=== PATIENT | female | born 1940 | race Caucasian/White ===

== ENCOUNTER → 2016-07-09 | Outpatient (CLI) | payer MEDICARE, BC, OTHER ==
[2016-07-09 09:49] LABS: BASO % 0.3 % (0.0-1.0); EOS # 0.2 K/mm3 (0.0-0.50); EOS % 2.5 % (0.0-3.0); LARGE UNSTAINED CELL # 0.1 K/mm3 (0.0-0.4); LARGE UNSTAINED CELL % 1.7 % (0.0-4.0); LYMPH # 1.9 K/mm3 (1.5-4.5); MEAN CORPUSCULAR HEMOGLOBIN 31.2 pg (27.0-33.0); MEAN CORPUSCULAR HGB CONC 33.3 g/dl (32.0-36.5); MEAN CORPUSCULAR VOLUME 93.5 fl (80.0-96.0); MONO # 0.3 K/mm3 (0.0-0.8); MONO % 5.9 % (0.0-5.0); NEUTROPHILS # 3.3 K/mm3 (1.8-7.7); NEUTROPHILS % 56.5 % (36.0-66.0); PLATELET COUNT, AUTOMATED 247 k/mm3 (150-450); RED CELL DISTRIBUTION WIDTH 12.2 % (11.5-14.5); WHITE BLOOD COUNT 5.8 K/mm3 (4.0-10.0)
[2016-07-09 10:20] LABS: ALBUMIN 3.5 GM/DL (3.2-5.2); ALBUMIN/GLOBULIN RATIO 1.35 (1.00-1.93); BILIRUBIN,TOTAL 0.4 MG/DL (0.2-1.0); CALCIUM LEVEL 9.1 MG/DL (8.8-10.2); CREATININE FOR GFR 1.18 MG/DL (0.55-1.02); GLOMERULAR FILTRATION RATE 47.4 (>39); POTASSIUM SERUM 4.1 MEQ/L (3.5-5.1); TOTAL PROTEIN 6.1 GM/DL (6.4-8.2)
== END ==
LOC: M WUC 08:06
PROVIDERS: ATTEND Family Medicine
DX: N18.3 Chronic kidney disease, stage 3 (moderate) (principal); E11.9 Type 2 diabetes mellitus without complications

== ENCOUNTER → 2016-12-04 | Outpatient (CLI) | payer MEDICARE, BC, OTHER ==
[~2016-12-04] MED LIST: CHLO125TA; LISI10TA4; METO1TAB33; NAME14CA; TIZA2TA; ULTR50TA8 PO
[2016-12-04 18:20] LABS: BASO % 0.6 % (0.0-1.0); EOS # 0.2 K/mm3 (0.0-0.50); LARGE UNSTAINED CELL # 0.1 K/mm3 (0.0-0.4); LYMPH # 1.9 K/mm3 (1.5-4.5); LYMPH % 28.7 % (24.0-44.0); MEAN CORPUSCULAR HEMOGLOBIN 32.3 pg (27.0-33.0); MEAN CORPUSCULAR HGB CONC 34.4 g/dl (32.0-36.5); MONO # 0.4 K/mm3 (0.0-0.8); MONO % 6.7 % (0.0-5.0); NEUTROPHILS # 3.7 K/mm3 (1.8-7.7); PLATELET COUNT, AUTOMATED 251 k/mm3 (150-450); RED CELL DISTRIBUTION WIDTH 12.7 % (11.5-14.5); WHITE BLOOD COUNT 6.2 K/mm3 (4.0-10.0)
[2016-12-04 18:22] LABS: ALBUMIN 3.6 GM/DL (3.2-5.2); ALBUMIN/GLOBULIN RATIO 1.44 (1.00-1.93); BILIRUBIN,TOTAL 0.4 MG/DL (0.2-1.0); CALCIUM LEVEL 10.5 MG/DL (8.8-10.2); CREATININE FOR GFR 1.32 MG/DL (0.55-1.02); GLOMERULAR FILTRATION RATE 41.7 (>39); PERCENT SATURATION 23.9 % (13.2-45.0); POTASSIUM SERUM 3.9 MEQ/L (3.5-5.1); TOTAL PROTEIN 6.1 GM/DL (6.4-8.2)
== END ==
LOC: M WUC 14:32
PROVIDERS: ATTEND Family Medicine
DX: N18.3 Chronic kidney disease, stage 3 (moderate) (principal); E11.9 Type 2 diabetes mellitus without complications; E55.9 Vitamin D deficiency, unspecified

== ENCOUNTER → 2017-01-06 | Outpatient (CLI) | payer MEDICARE, BC, OTHER ==
[2017-01-06 20:22] LABS: ALBUMIN 3.3 GM/DL (3.2-5.2); ANION GAP 10 MEQ/L (8-16); BLOOD UREA NITROGEN 20 MG/DL (7-18); CALCIUM LEVEL 8.8 MG/DL (8.8-10.2); CARBON DIOXIDE LEVEL 27 MEQ/L (21-32); CHLORIDE LEVEL 105 MEQ/L (98-107); CREATININE FOR GFR 1.26 MG/DL (0.55-1.02); GLUCOSE, FASTING 119 MG/DL (83-110); IMMUNOGLOBULIN G 596 MG/DL (681-1648); IMMUNOGLOBULIN M 31.9 MG/DL (40-230); PHOSPHORUS LEVEL 2.8 MG/DL (2.5-4.9); POTASSIUM SERUM 3.8 MEQ/L (3.5-5.1); SODIUM LEVEL 142 MEQ/L (136-145); TOTAL PROTEIN 6.3 GM/DL (6.4-8.2)
[2017-01-07 14:27] LABS: ALBUMIN 3.86 GM/DL (3.29-5.55); ALBUMIN % 61.3 % (55.8-66.1); GAMMA GLOBULIN % 10.1 % (11.1-18.8)
[2017-01-13 00:06] LABS: PTH RELATED PEPTIDE < 1.1 pmol/L (.); VITAMIN D 1,25 DIHYDROXY 51.6 pg/mL (19.9-79.3)
== END ==
LOC: M WUC 15:27
PROVIDERS: ATTEND Family Medicine
DX: E83.52 Hypercalcemia (principal)

== ENCOUNTER 2017-02-23 10:51 | Emergency (ER) | payer MEDICARE, BC, OTHER ==
[2017-02-23] MEDS ORDERED: NAME14CA (11:02)
[2017-02-23] MEDS ORDERED: TIZA2TA (11:02)
[2017-02-23] MEDS ORDERED: CHLO125TA (11:02)
[2017-02-23] MEDS ORDERED: LISI10TA4 (11:02)
[2017-02-23] MEDS ORDERED: METO1TAB33 (11:02)
[2017-02-23 13:17] LABS: BASO % 0.3 % (0.0-1.0); EOS # 0.2 10^3/uL (0.0-0.50); EOS % 2.3 % (0.0-3.0); IMMATURE GRANULOCYTE % 0.4 % (0-0); LYMPH # 1.7 10^3/uL (1.5-4.5); MEAN CORPUSCULAR HEMOGLOBIN 31.8 pg (27.0-33.0); MEAN CORPUSCULAR HGB CONC 33.4 g/dl (32.0-36.5); MONO # 0.6 10^3/uL (0.0-0.8); MONO % 8.7 % (0.0-5.0); NEUTROPHILS # 4.8 10^3/uL (1.8-7.7); NEUTROPHILS % 65.3 % (36.0-66.0); PLATELET COUNT, AUTOMATED 292 10^3/uL (150-450); RED CELL DISTRIBUTION WIDTH 12.4 % (11.5-14.5); WHITE BLOOD COUNT 7.4 10^3/uL (4.0-10.0)
[2017-02-23 14:00] LABS: ALBUMIN 3.8 GM/DL (3.2-5.2); ALBUMIN/GLOBULIN RATIO 1.23 (1.00-1.93); BILIRUBIN,DIRECT 0.1 MG/DL (0.0-0.2); BILIRUBIN,TOTAL 0.4 MG/DL (0.2-1.0); CALCIUM LEVEL 9.6 MG/DL (8.8-10.2); CREATININE FOR GFR 1.52 MG/DL (0.55-1.02); GLOMERULAR FILTRATION RATE 35.4 (>39); POTASSIUM SERUM 4.1 MEQ/L (3.5-5.1); TOTAL PROTEIN 6.9 GM/DL (6.4-8.2)
--- NOTE | 2017-02-23 18:51 | REP ---
MRI LUMBAR SPINE WITHOUT CONTRAST: 02/23/2017. Clinical history: Back pain and radiculopathy. Comparison: There are no prior studies. Technique: Sagittal and axial images with multiple sequences for each provided. Findings: The sagittal images show loss of lordosis. The vertebral body heights and marrow signal are normal. Disc space is markedly narrowed at the L5-S1 with a few millimeters of retrolisthesis of L5 on S1. There is also slight disc space narrowing at L3-4 and more at L2-3 and normal at L1-2. All levels show some degree of loss of disc water signal increasing as the levels decrease. No marrow signal abnormality. Conus terminates at the upper aspect of the L1. The T12-L1 and L1-2 levels show no disc bulge or herniation and no spinal or foraminal stenosis. At L2-3, there is mild broad-based disc bulge with some posterior osteophytes and ligamentum flavum hypertrophy. Cross-sectional area of the canal was adequate. The foramina show loss of perineural fat without nerve root compression on the right and ample perineural fat on the left without nerve root compression of the L2 roots. At L3-4, there is mild broad-based disc bulge, ligamentum flavum and facet hypertrophy. Cross-sectional area of the central canal adequate. Loss of perineural fat on the right due to facet spur and disc bulge. The left foramen is adequate. At L5-S1 broad-based disc bulge with central disc protrusion, more extensive ligamentum flavum and facet hypertrophy combining to cause some central canal stenosis, moderately severe. The AP canal diameter is minimally 7.2 mm. There is left paracentral extruded disc material extending below the superior endplate of L5 in the canal, but not into the foramen. This abuts and displaces the left L5 nerve root. The right L5 nerve root is abutted by disc bulge but not displaced on the opposite side. There is loss of perineural fat to a mild degree on both sides without nerve root compression. At L5-S1, there is a broad-based disc bulge with central disc protrusion. This flattens ventral thecal sac. Ligamentum flavum hypertrophy noted. There is some lateral recess stenosis. Foramina show loss of perineural fat on both sides, more left than right. Impression: 1. Lumbar spondylosis from L2-3 through L5-S1, worst at L4-5 with combined factors causing central canal stenosis including ligamentum and facet hypertrophy with broad-based disc bulge and central disc protrusion. However, there is also a disc extrusion posteriorly to the left in the central canal extending from the end plate posterior to the vertebral body of L5 and this abuts and displaces the left L5 nerve root in the central canal with moderately severe stenosis with ligamentum and facet hypertrophy. 2. The L3-4 level and L2-3 show central canal adequate and some mild loss of perineural fat on the right without nerve root compression. 3. The L5-S1 level shows broad-based disc bulge abutting the S1 nerve roots but not causing significant central canal stenosis, but combined factors cause lateral recess stenosis and there is some foraminal narrowing due to combined factors with loss of perineural fat at both sides. Signed by Nikita Liz MD 02/23/2017 08:29 P
[2017-02-23] MEDS ORDERED: ULTR50TA8 PO (19:29)
[2017-02-23 19:40] VITALS: BP 134/77
== END 2017-02-23 19:41 | disposition home or self-care (01) ==
LOC: M ED 10:51
DX: M51.17 Intervertebral disc disorders with radiculopathy, lumbosacral region (principal)

== ENCOUNTER 2017-03-28 09:33 | Inpatient (IN) | payer MEDICARE, BC, OTHER ==
[~2017-03-28] VITALS: Ht 162.6 cm; Wt 81.3 kg
[~2017-03-28 09:33] MED LIST changes: -LISI10TA4; +LISI10TA4 PO; -METO1TAB33; +METO1TAB33 PO; -NAME14CA; +NAME14CA PO
[2017-03-28] MEDS ORDERED: VITA100072 PO (09:51)
[2017-03-28] MEDS ORDERED: METF500T13 PO (09:51)
[2017-03-28] MEDS ORDERED: ATOR1TAB19 PO (09:51)
[2017-03-28] MEDS ORDERED: FISH100049 PO (09:51)
[2017-03-28] MEDS ORDERED: DONETAB6 PO (09:51)
[2017-03-28] MEDS ORDERED: MULT1CHW39 PO (09:51)
[2017-03-28] MEDS ORDERED: DOXY50CA26 PO (09:51)
[2017-03-28] MEDS ORDERED: MULT1TAB10 PO (09:51)
[2017-03-28] MEDS ORDERED: GABA-279 PO (09:51)
[2017-03-28] MEDS ORDERED: TRAM50TA2 PO (10:35)
[2017-03-28] MEDS ORDERED: CHLO25TA PO (10:35)
[2017-03-28] MEDS ORDERED: DOXY50TA2 PO (10:35)
[2017-03-28] MEDS ORDERED: METF-414 PO (10:35)
--- NOTE | 2017-03-28 10:37 | REP ---
Clinical: Altered mental status. Findings: Age-related atrophy and microvascular ischemic changes are appreciated. The ventricles and sulci are symmetric. Cole-white differentiation is maintained. There is no evidence for acute intracranial hemorrhage, mass/mass effect, pathology or infarction. No extra-axial fluid collection. Calvarium is intact. Paranasal sinuses and mastoid air cells are clear. Impression: Age related atrophy and microvascular ischemic changes. No acute intracranial hemorrhage, infarction, or mass/mass effect. Signed by Fransico Murdock MD 03/28/2017 10:29 A
[2017-03-28 11:07] LABS: BASO % 0.2 % (0.0-1.0); EOS % 0.3 % (0.0-3.0); IMMATURE GRANULOCYTE % 0.5 % (0-0); LYMPH # 1.4 10^3/uL (1.5-4.5); LYMPH % 10.7 % (24.0-44.0); MEAN CORPUSCULAR HEMOGLOBIN 31.9 pg (27.0-33.0); MEAN CORPUSCULAR HGB CONC 33.7 g/dl (32.0-36.5); MEAN CORPUSCULAR VOLUME 94.7 fl (80.0-96.0); MONO # 1.2 10^3/uL (0.0-0.8); MONO % 9.1 % (0.0-5.0); NEUTROPHILS # 10.2 10^3/uL (1.8-7.7); NEUTROPHILS % 79.2 % (36.0-66.0); PLATELET COUNT, AUTOMATED 237 10^3/uL (150-450); RED CELL DISTRIBUTION WIDTH 12.3 % (11.5-14.5); WHITE BLOOD COUNT 12.9 10^3/uL (4.0-10.0)
[2017-03-28 11:30] LABS: ANION GAP 10 MEQ/L (8-16); BLOOD UREA NITROGEN 27 MG/DL (7-18); CALCIUM LEVEL 9.5 MG/DL (8.8-10.2); CARBON DIOXIDE LEVEL 26 MEQ/L (21-32); CHLORIDE LEVEL 105 MEQ/L (98-107); CREATININE FOR GFR 1.52 MG/DL (0.55-1.02); GLOMERULAR FILTRATION RATE 35.4 (>39); GLUCOSE, FASTING 129 MG/DL (83-110); POTASSIUM SERUM 4.3 MEQ/L (3.5-5.1); SODIUM LEVEL 141 MEQ/L (136-145)
--- NOTE | 2017-03-28 11:31 | REP ---
Clinical: Altered mental status. Comparison: None . Findings: The mediastinum and cardiac silhouette are stable and within normal limits for portable technique. Left lower lobe layering effusion versus chronic changes cannot be excluded. No focal consolidation or pneumothorax. Skeletal structures are intact. Impression: Cannot exclude small left lower lobe effusion. Signed by Fransico Murdock MD 03/28/2017 11:23 A
--- NOTE | 2017-03-28 17:58 | REP ---
Clinical: Abdominal pain with distension and diarrhea could Technique: Two supine views of the abdomen and pelvis. Findings: Bowel gas pattern is nonspecific. No significant fecal stasis or constipation is identified and there is no evidence for bowel obstruction or obvious perforation. No organomegaly. Skeletal structures demonstrate age-related changes. No abnormal calcifications. Impression: Nonspecific bowel gas pattern. Signed by Fransico Murdock MD 03/28/2017 05:49 P
[2017-03-28] MEDS ORDERED: NS 0.45% 500 ML IV SCH (18:00)
[2017-03-28 18:58] VITALS: BP 140/64
[2017-03-28] MEDS: LISINOPRIL 10 MG TAB PO SCH (21:11)
[2017-03-28] MEDS: METOPROLOL SUCC (TopROL XL) 100MG *XL* TAB PO SCH (21:11)
[2017-03-28] MEDS: ATORVASTATIN 10 MG TAB PO SCH (21:11)
[2017-03-28] MEDS: DONEPEZIL 5 MG TAB PO SCH (21:12)
[2017-03-28] MEDS: risperiDONE 0.25 MG TAB PO SCH (22:18)
[2017-03-29 06:00] VITALS: BP 125/67
[2017-03-29 06:40] LABS: MEAN CORPUSCULAR HEMOGLOBIN 31.2 pg (27.0-33.0); MEAN CORPUSCULAR HGB CONC 33.1 g/dl (32.0-36.5); MEAN CORPUSCULAR VOLUME 94.3 fl (80.0-96.0); PLATELET COUNT, AUTOMATED 250 10^3/uL (150-450); RED CELL DISTRIBUTION WIDTH 12.5 % (11.5-14.5); WHITE BLOOD COUNT 10.4 10^3/uL (4.0-10.0)
[2017-03-29 07:03] LABS: CALCIUM LEVEL 9.6 MG/DL (8.8-10.2); CREATININE FOR GFR 1.39 MG/DL (0.55-1.02); GLOMERULAR FILTRATION RATE 39.2 (>39)
[2017-03-29] MEDS: CYANOCOBALAMIN 500 MCG TAB PO SCH (08:38)
[2017-03-29] MEDS: MULTIVITAMINS/MINERALS THERAP 1 TAB PO SCH (08:39)
[2017-03-29] MEDS: METOPROLOL SUCC (TopROL XL) 100MG *XL* TAB PO SCH ×2 (08:42→20:57)
--- NOTE | 2017-03-29 09:06 | ECGEPIP ---
Stationary ECG Study [facility] - ED Test Date: 2017-03-28 Pat Name: MARSIOL RAYA Department: Room: - Gender: F Field Mechanic/Site Lead: jennifer : 1940 Requested By: Giovanny Pate Order Number: [id number] Reading MD: iGovanny Medina Measurements Intervals [place] Rate: 67 P: 15 IL: 181 QRS: 11 QRSD: 106 T: 180 QT: 402 QTc: 425 Interpretive Statements SINUS RHYTHM ST DEVIATION AND MODERATE T-WAVE ABNORMALITY, CONSIDER ANTERIOR ISCHEMIA NO PRIORS FOR COMPARISON Electronically Signed On 03-29-2017 9:06:26 EST by Giovanny Medina
--- NOTE | 2017-03-29 11:08 | IPNPDOC ---
Subjective Date Seen The patient was seen on 03/29/17. Subjective Chief Complaint/HPI The patient is a 76-year-old female admitted with a reason for visit of Acute Delirium,Dehydration,Leukocytosis. Events since last encounter Pt without new concerns this morning. She seems to be unable to answer my questions appropriately. She tells me that she is 'here' when asked if she knew where she is. She is able to tell me her name or the year, she giggles in response. She is attempting to pick at the food on her tray. General: Reports: ROS Unobtainable, Fatigue Psych: Reports: Memory Issues Objective Physical Examination General Exam: Positive: Alert, No Acute Distress ENT Exam: Positive: Mucous membr. moist/pink Chest Exam: Positive: Clear to auscultation, Normal air movement Heart Exam: Positive: Rate Normal, Normal S1, Normal S2 Abdomen Exam: Positive: Normal bowel sounds, Soft, Negative: Tenderness Extremity Exam: Negative: Edema Psych Exam: Negative: Memory Intact, Oriented x 3 Assessment /Plan Problems (1) Acute delirium Status: Resolved Response to Treatment: Stable Problem Specific Plan: Monitor Clinically, Repeat Labs Problem Text: 03/29: Not dehydrated. BUN/Creat near her baseline. Likely d/t dehydration, has rec IVF which are not d/c, her renal function appears to have returned to baseline. She will need placement as her is no longer able to care for her tomorrow. Anticipated ALC 03/30. (2) Dehydration Status: Resolved Response to Treatment: Improving Problem Text: as above (3) Alzheimer's dementia Status: Chronic Response to Treatment: Stable Problem Specific Plan: Monitor Clinically Problem Text: Pt's has been her primary caregiver and he is no longer able to provide the level of care that she requires. He is requesting placement. (4) CKD (chronic kidney disease), stage III Status: Chronic Response to Treatment: Stable, Improving Problem Specific Plan: Monitor Clinically Problem Text: Appears to be back at baseline. Plan/VTE VTE Prophylaxis Ordered?: Yes VS, I&O, 24H, Fishbone Vital Signs/I&O Vital Signs Date Time Temp Pulse Resp B/P (MAP) Pulse Ox O2 Delivery O2 Flow Rate FiO2 03/29/17 08:42 98 152/76 03/29/17 06:00 98.5 18 96 Room Air I&O- Last 24 Hours up to 6 AM 03/30/17 06:00 Intake Total 0 ml Balance 0 ml Laboratory Data 24H LABS Laboratory Tests 2 03/29/17 06:22: Nucleated Red Blood Cells % (auto) 0.0, Anion Gap 7L, Glomerular Filtration Rate 39.2, Blood Urea Nitrogen 26H, Creatinine 1.39H, Sodium Level 137, Potassium Level 4.0, Chloride Level 102, Carbon Dioxide Level 28, Calcium Level 9.6 CBC/BMP Laboratory Tests 03/29/17 06:22 Red Blood Count 4.04, Mean Corpuscular Volume 94.3, Mean Corpuscular Hemoglobin 31.2, Mean Corpuscular Hemoglobin Concent 33.1, Red Cell Distribution Width 12.5 , Calcium Level 9.6 Microbiology Microbiology 03/28/17 Blood Culture, Received Pending 03/28/17 Blood Culture, Received Pending 03/28/17 Urine Culture, Received Pending EMORY COX PA-C Mar 29, 2017 11:08 Ramin Ferguson MD Mar 30, 2017 11:02
[2017-03-29] MEDS: ENOXAPARIN 30 MG/0.3 ML SYR (J1650) SC SCH (11:31)
[2017-03-29 14:00] VITALS: BP 138/70
[2017-03-29] MEDS: ATORVASTATIN 10 MG TAB PO SCH (20:56)
[2017-03-29] MEDS: risperiDONE 0.25 MG TAB PO SCH (20:56)
[2017-03-29] MEDS: LISINOPRIL 10 MG TAB PO SCH (20:56)
[2017-03-29] MEDS: DONEPEZIL 5 MG TAB PO SCH (20:56)
[2017-03-29 22:00] VITALS: BP 129/77
[2017-03-30 06:00] VITALS: BP 127/80
[2017-03-30 06:36] LABS: MEAN CORPUSCULAR HEMOGLOBIN 31.8 pg (27.0-33.0); MEAN CORPUSCULAR VOLUME 93.6 fl (80.0-96.0); PLATELET COUNT, AUTOMATED 244 10^3/uL (150-450); RED CELL DISTRIBUTION WIDTH 12.3 % (11.5-14.5); WHITE BLOOD COUNT 10.7 10^3/uL (4.0-10.0)
[2017-03-30 06:55] LABS: CALCIUM LEVEL 9.7 MG/DL (8.8-10.2); CREATININE FOR GFR 1.29 MG/DL (0.55-1.02); GLOMERULAR FILTRATION RATE 42.8 (>39); POTASSIUM SERUM 3.9 MEQ/L (3.5-5.1)
[2017-03-30] MEDS: TAMSULOSIN 0.4 MG CAP PO SCH (08:29)
[2017-03-30] MEDS: MULTIVITAMINS/MINERALS THERAP 1 TAB PO SCH (08:29)
[2017-03-30] MEDS: CYANOCOBALAMIN 500 MCG TAB PO SCH (08:29)
[2017-03-30] MEDS: METOPROLOL SUCC (TopROL XL) 100MG *XL* TAB PO SCH ×2 (08:41→22:14)
[2017-03-30] MEDS: ENOXAPARIN 30 MG/0.3 ML SYR (J1650) SC SCH (10:52)
--- NOTE | 2017-03-30 15:11 | DSES ---
DATE OF ADMISSION: 03/28/2017 DATE OF DISCHARGE: Patient transferring to ALC status. REASON FOR ADMISSION: The patient admitted to the hospital because of perception of acute change in mental status. She was apparently admitted from the emergency department. She had been suffering from Alzheimer's dementia for some time, her was no longer able to care for her. There was some concern about acute delirium initially which was not clear whether it was a side effect of her medications, due to infection or possibly due to dehydration. She was treated with IV normal saline briefly, antibiotics. her medications were modified slightly, continued on donepezil risperidone was continued while in hospital but will be discontinued at discharge. She had difficulties with urine retention, with bladder volume greater than 300 documented by ultrasound and intermittent catheterization was then instituted as well as starting Flomax 0.4 mg daily. Mental status really did not change substantially. She is not delirious, she awakes with stimulus, responds to queries with short answers that seem detached from the nature of the inquiry, but she has stable normal vital signs. She has age related atrophy and microvascular ischemic changes on the CT scan of her brain consistent with dementia. Chest x-ray did not demonstrate abnormalities other than left lower lobe effusion versus chronic changes. Abdomen x-ray showed nonspecific gas pattern. Chemistries were remarkable only for elevated creatinine of 1.52 on admission, improved to 1.29 on day of discharge. BUN was at its worst 27 and improved to 23 at the time of discharge. Sodium, potassium and chloride were normal. CK-MB was negative. Albumin was 3.8. IMPRESSION: The patient is with acute change in mental status, stable, improvement to the point of chronic condition consistent with advanced Alzheimer's dementia. She needs encouragement to take meals. DISCHARGE MEDICATIONS: Include: - tamsulosin 0.4 mg daily - vitamin B12 1000 mcg daily - multivitamins one daily - levofloxacin 30 mg subcutaneous daily - atorvastatin 10 mg daily - lisinopril 10 mg daily - metoprolol 100 mg as succinate twice a day - donepezil 10 mg at bedtime Risperdal will be discontinued. PLAN: She will be a candidate for placement since home care is no longer an option for her. The patient is discharged to ALC status at this time. Activity as tolerated. PT to continue to provide some rehabilitative support. Diet will continue as regular diet.
[2017-03-30] MEDS ORDERED: NAMENDA 14 MG PO SCH (21:00)
[2017-03-30] MEDS: NAMENDA 14 MG PO SCH (22:12)
[2017-03-30] MEDS: DONEPEZIL 5 MG TAB PO SCH (22:14)
[2017-03-30] MEDS: ATORVASTATIN 10 MG TAB PO SCH (22:15)
[2017-03-30] MEDS: LISINOPRIL 10 MG TAB PO SCH (22:15)
[2017-03-30] MEDS ORDERED: risperiDONE 0.25 MG TAB PO PRN (23:30)
[2017-03-31] MEDS ORDERED: risperiDONE 0.25 MG TAB PO ONE
[2017-03-31] MEDS ORDERED: risperiDONE 0.25 MG TAB PO PRN (01:00)
[2017-03-31 06:00] VITALS: BP 123/58
[2017-03-31 06:39] LABS: MEAN CORPUSCULAR HEMOGLOBIN 32.1 pg (27.0-33.0); MEAN CORPUSCULAR HGB CONC 34.4 g/dl (32.0-36.5); MEAN CORPUSCULAR VOLUME 93.4 fl (80.0-96.0); PLATELET COUNT, AUTOMATED 256 10^3/uL (150-450); RED CELL DISTRIBUTION WIDTH 12.3 % (11.5-14.5); WHITE BLOOD COUNT 7.5 10^3/uL (4.0-10.0)
[2017-03-31 06:52] LABS: CALCIUM LEVEL 9.7 MG/DL (8.8-10.2); CREATININE FOR GFR 1.45 MG/DL (0.55-1.02); GLOMERULAR FILTRATION RATE 37.4 (>39); POTASSIUM SERUM 3.6 MEQ/L (3.5-5.1)
--- NOTE | 2017-03-31 09:17 | IPNPDOC ---
Subjective Date Seen The patient was seen on 03/31/17. Subjective Chief Complaint/HPI The patient is a 76-year-old female admitted with a reason for visit of Acute Delirium,Dehydration,Leukocytosis. Objective Physical Examination General Exam: Positive: Alert, No Acute Distress ENT Exam: Positive: Mucous membr. moist/pink Chest Exam: Positive: Clear to auscultation, Normal air movement Heart Exam: Positive: Rate Normal, Normal S1, Normal S2 Abdomen Exam: Positive: Normal bowel sounds, Soft, Negative: Tenderness Extremity Exam: Negative: Edema Psych Exam: Negative: Memory Intact, Oriented x 3 Assessment /Plan Problems (1) Alzheimer's dementia Status: Chronic Response to Treatment: Stable Problem Specific Plan: Monitor Clinically Problem Text: 03/31: she became confused, belligerent, striking at nurses and interfering with care. Give resperidone 0.25 with good result, will resume routine dosing since she seems to need Rx. Pt's has been her primary caregiver and he is no longer able to provide the level of care that she requires. He is requesting placement. (2) Acute delirium Status: Resolved Response to Treatment: Stable Problem Specific Plan: Monitor Clinically, Repeat Labs Problem Text: 03/29: Not dehydrated. BUN/Creat near her baseline. Likely d/t dehydration, has rec IVF which are not d/c, her renal function appears to have returned to baseline. She will need placement as her is no longer able to care for her tomorrow. Anticipated ALC 03/30. (3) Dehydration Status: Resolved Response to Treatment: Improving Problem Text: as above (4) CKD (chronic kidney disease), stage III Status: Chronic Response to Treatment: Stable, Improving Problem Specific Plan: Monitor Clinically Problem Text: Appears to be back at baseline. Plan/VTE VTE Prophylaxis Ordered?: Yes VS, I&O, 24H, Fishbone Vital Signs/I&O Vital Signs Date Time Temp Pulse Resp B/P (MAP) Pulse Ox O2 Delivery O2 Flow Rate FiO2 03/31/17 06:00 97.5 85 18 123/58 (79) 93 Room Air Laboratory Data 24H LABS Laboratory Tests 2 03/31/17 06:05: Nucleated Red Blood Cells % (auto) 0.0, Anion Gap 10, Glomerular Filtration Rate 37.4L, Blood Urea Nitrogen 29H, Creatinine 1.45H, Sodium Level 138, Potassium Level 3.6, Chloride Level 103, Carbon Dioxide Level 25, Calcium Level 9.7 CBC/BMP Laboratory Tests 03/31/17 06:05 Red Blood Count 3.64 L, Mean Corpuscular Volume 93.4, Mean Corpuscular Hemoglobin 32.1, Mean Corpuscular Hemoglobin Concent 34.4, Red Cell Distribution Width 12.3, Calcium Level 9.7 Microbiology Microbiology 03/28/17 Blood Culture - Preliminary, Resulted No Growth after 48 hours. All Specime... 03/28/17 Blood Culture - Preliminary, Resulted No Growth after 48 hours. All Specime... 03/28/17 Urine Culture - Final, Complete Ramin Ferguson MD Mar 31, 2017 09:17
[2017-03-31] MEDS: MULTIVITAMINS/MINERALS THERAP 1 TAB PO SCH (09:20)
[2017-03-31] MEDS: ENOXAPARIN 30 MG/0.3 ML SYR (J1650) SC SCH (09:21)
[2017-03-31] MEDS: METOPROLOL SUCC (TopROL XL) 100MG *XL* TAB PO SCH ×2 (09:21→21:00)
[2017-03-31] MEDS: TAMSULOSIN 0.4 MG CAP PO SCH (09:21)
[2017-03-31] MEDS: CYANOCOBALAMIN 500 MCG TAB PO SCH (09:22)
[2017-03-31 10:19] VITALS: BP 129/72
--- NOTE | 2017-03-31 11:20 | HPE ---
DATE OF ADMISSION: 03/28/2017 CHIEF COMPLAINT: Sudden mental status change with combativeness. HISTORY OF PRESENT ILLNESS: This is a 76-year-old white female, a patient of Dr. Michael Huddleston, who presents to [facility] Emergency Room, brought in by the patient's , who has noted that the patient has had sudden onset of mental status change with combativeness progressively worsening over the last 3 days. There is no concomitant fever, no chills, no cough, no congestion, no abdominal pain, change in bowel movements, nor urinary tract symptoms, although the patient has not been coherent enough to complain of anything. She has refused most of her medications over the last 3 days. She recently was placed on gabapentin and tramadol for lumbar radicular pain. Otherwise, no new medications. PAST MEDICAL HISTORY: Hospitalizations: None recently. Illnesses: Alzheimer dementia, moderate. Hypertension. Hyperlipidemia. Obesity. Rosacea. Vitamin D deficiency. Chronic kidney disease stage III. 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 SURGERIES: Appendectomy, total abdominal hysterectomy and bilateral salpingo-oophorectomy (TAHBSO) for noncancerous reasons, tonsillectomy. MEDICATIONS: - calcium with vitamin D 600/400 every day - Lovaza 1 gram twice a day - doxycycline 50 twice a day - vitamin B12 1 mg every day - lisinopril 10 by mouth every day - multivitamin one tablet every day - Aricept 10 nightly - metformin 500 before dinner - metoprolol succinate 100 by mouth twice a day - atorvastatin 10 by mouth every day - chlorthalidone 12.5 every day - Namenda XR 14 mg by mouth every day - gabapentin 100 three times a day - tramadol 50 every 6 as needed SOCIAL HISTORY: The patient lives with . The patient is a nonsmoker. No alcohol abuse. No illicit drug use. FAMILY HISTORY: Is remarkable for a sister with early-onset Alzheimer dementia with rapid progression. Father at 76 secondary to dementia. Mother at 85 secondary to dementia. REVIEW OF SYSTEMS: CONSTITUTIONAL: No weight loss or night sweats. VISION: No diplopia or scotoma. EARS, NOSE, AND THROAT (ENT): No epistaxis or hoarseness. CARDIOVASCULAR: No chest pain or palpitations. PULMONARY: No shortness of breath. No wheeze. GASTROINTESTINAL (GI): No odynophagia, melena, or hematochezia. GENITOURINARY (): No dysuria or hematuria. DERMATOLOGIC: No rash. ENDOCRINE: No polyuria or polydipsia. RHEUMATOLOGIC: No joint or tendon pain. NEUROLOGIC: No paresthesias or weakness. PHYSICAL EXAMINATION: 98.4, 88, 18, 134/77, 96% on room air. GENERAL: The patient is alert and oriented times zero, no acute distress. No focal weakness but agitated with examination. HEAD: Is normocephalic, atraumatic. EARS: Tympanic membranes (TMs) normal bilateral. EYES: With clear conjunctivae. NOSE: Without discharge. THROAT: Clear oropharynx. NECK: Without adenopathy or thyromegaly. CARDIOVASCULAR: Is regular rate and rhythm without murmurs, rubs, or gallops. RESPIRATORY: Normal respiratory effort. Normal breath sounds. ABDOMEN: Is nontender, nondistended. Positive bowel sounds. No hepatosplenomegaly. EXTREMITIES: Without clubbing, cyanosis, or edema. NEUROLOGIC: Is nonfocal. INVESTIGATIONS: Showed WBC of 12.9, hemoglobin 13.2, platelets of 237, with 79% neutrophils. Sodium 141, potassium 4.3, BUN and creatinine 27 and 1.5, CK of 47, troponin I less than 0.02. Urinalysis (UA) is unremarkable. Head CT shows age-related atrophy, no acute bleed, infarct, or mass. Chest x-ray showing no acute disease, possible left lower lobe effusion, and abdominal x-ray with nonspecific gas pattern. ASSESSMENT: This is a 76-year-old white female with chronic moderate dementia, now in acute delirium, leukocytosis with left shift, and mild dehydration with acute kidney injuries stage I. PLAN: 1. Infectious disease (ID). Will admit the patient to [facility] medical-surgical bed. Blood and urine cultures are pending. Follow white count closely. No obvious source of infection at this point, although possible early pneumonia by chest x-ray. 2. Neurological. Will continue her home Aricept and Namenda dosing. Start Risperdal 0.25 nightly as needed agitation. 3. Renal. Will give 500 mL half-normal saline 150 an hour, given mild dehydration, will hold her chlorthalidone now, given her acute kidney injury. 4. Cardiovascular. Will continue her home antihypertensive regimen except holding chlorthalidone and lisinopril for now, given acute kidney injury. 5. Endocrine. Will place on [id number] diet. Will hold metformin, given acute kidney injury. Start sliding scale NovoLog insulin. 6. Deep venous thrombosis (DVT) prophylaxis. Will place on Lovenox, renally dosed. 7. Deconditioning. Will consult physical therapy (PT) for home safety evaluation.
[2017-03-31 14:00] VITALS: BP 135/58
[2017-03-31] MEDS: risperiDONE 0.5 MG TAB PO SCH (20:56)
[2017-03-31] MEDS: LISINOPRIL 10 MG TAB PO SCH (21:00)
[2017-03-31] MEDS: NAMENDA 14 MG PO SCH (21:00)
[2017-03-31] MEDS: DONEPEZIL 5 MG TAB PO SCH (21:02)
[2017-03-31] MEDS: ATORVASTATIN 10 MG TAB PO SCH (21:02)
[2017-04-01 06:00] VITALS: BP 121/61
[2017-04-01 07:03] LABS: MEAN CORPUSCULAR HEMOGLOBIN 31.7 pg (27.0-33.0); MEAN CORPUSCULAR HGB CONC 33.3 g/dl (32.0-36.5); MEAN CORPUSCULAR VOLUME 95.1 fl (80.0-96.0); PLATELET COUNT, AUTOMATED 260 10^3/uL (150-450); RED CELL DISTRIBUTION WIDTH 12.3 % (11.5-14.5); WHITE BLOOD COUNT 7.6 10^3/uL (4.0-10.0)
[2017-04-01 07:24] LABS: CALCIUM LEVEL 9.6 MG/DL (8.8-10.2); CREATININE FOR GFR 1.68 MG/DL (0.55-1.02); GLOMERULAR FILTRATION RATE 31.5 (>39); POTASSIUM SERUM 3.7 MEQ/L (3.5-5.1)
[2017-04-01 08:30] VITALS: BP 128/78
--- NOTE | 2017-04-01 09:59 | IPNPDOC ---
Subjective Date Seen The patient was seen on 04/01/17. Subjective Chief Complaint/HPI The patient is a 76-year-old female admitted with a reason for visit of Acute Delirium,Dehydration,Leukocytosis. General: Reports: ROS Unobtainable Objective Physical Examination General Exam: Positive: Alert, No Acute Distress ENT Exam: Positive: Mucous membr. moist/pink Chest Exam: Positive: Clear to auscultation, Normal air movement Heart Exam: Positive: Rate Normal, Normal S1, Normal S2 Abdomen Exam: Positive: Normal bowel sounds, Soft, Negative: Tenderness Extremity Exam: Positive: Other (NEG SLR, left), Negative: Edema Psych Exam: Negative: Memory Intact, Oriented x 3 Assessment /Plan Problems (1) Alzheimer's dementia Status: Chronic Response to Treatment: Stable Problem Specific Plan: Monitor Clinically Problem Text: 03/31: she became confused, belligerent, striking at nurses and interfering with care. Give resperidone 0.25 with good result, will resume routine dosing since she seems to need Rx. Pt's has been her primary caregiver and he is no longer able to provide the level of care that she requires. He is requesting placement. (2) Acute delirium Status: Resolved Response to Treatment: Stable Problem Specific Plan: Monitor Clinically, Repeat Labs Problem Text: 03/29: Not dehydrated. BUN/Creat near her baseline. Likely d/t dehydration, has rec IVF which are not d/c, her renal function appears to have returned to baseline. She will need placement as her is no longer able to care for her tomorrow. Anticipated ALC 03/30. (3) Dehydration Status: Resolved Response to Treatment: Improving Problem Text: as above (4) CKD (chronic kidney disease), stage III Status: Chronic Response to Treatment: Stable, Worse Problem Specific Plan: Monitor Clinically Problem Text: 04/01: creatinine creeping up. po intake is poor. BP is low enough that I will d/c lisinopril at this time, follow bp, recheck creatinine in am. Appears to be back at baseline. (5) Sciatica, left side Status: Chronic Response to Treatment: Stable Problem Specific Plan: Consult Specialist Problem Text: patient seen 02/05/17 with c/o left sided leg pain. MRI was done later that month that demonstrated L5/S1 disc protrusion with evidence of compression of Left L5 nerve root. Pain clinic consult initiated and according to spouse was scheduled for 04/05/17. He is requesting pain clinic consult while here. However, nursing, PT and patient haven't reported pain. Reviewed with the spouse the natural history of disc herniation related pain and that about 90% of these episodes improve or resolve w/o intervention. Routine acetaminophen "arthritis strength" ordered and Pain Consult requested. (6) Urinary retention Status: Acute Response to Treatment: Stable Problem Text: Routinely has about 300+ urinary volume requiring straight cath. Tamsulosin added. Plan/VTE VTE Prophylaxis Ordered?: Yes Plan Anticipated Discharge: Home With Services VS, I&O, 24H, [facility] Vital Signs/I&O Vital Signs Date Time Temp Pulse Resp B/P (MAP) Pulse Ox O2 Delivery O2 Flow Rate FiO2 04/01/17 06:00 97.7 80 14 121/61 (81) 96 Room Air Laboratory Data 24H LABS Laboratory Tests 2 04/01/17 06:54: Nucleated Red Blood Cells % (auto) 0.0, Anion Gap 9, Glomerular Filtration Rate 31.5L, Blood Urea Nitrogen 38H, Creatinine 1.68H, Sodium Level 140, Potassium Level 3.7, Chloride Level 105, Carbon Dioxide Level 26, Calcium Level 9.6 CBC/BMP Laboratory Tests 04/01/17 06:54 Red Blood Count 3.88 L, Mean Corpuscular Volume 95.1, Mean Corpuscular Hemoglobin 31.7, Mean Corpuscular Hemoglobin Concent 33.3, Red Cell Distribution Width 12.3, Calcium Level 9.6 Microbiology Microbiology 03/28/17 Blood Culture - Preliminary, Resulted No Growth after 72 hours. All specime... 03/28/17 Blood Culture - Preliminary, Resulted No Growth after 72 hours. All specime... 03/28/17 Urine Culture - Final, Complete Ramin Ferguson MD Apr 01, 2017 09:59
[2017-04-01] MEDS: TAMSULOSIN 0.4 MG CAP PO SCH (10:36)
[2017-04-01] MEDS: CYANOCOBALAMIN 500 MCG TAB PO SCH (10:36)
[2017-04-01] MEDS: METOPROLOL SUCC (TopROL XL) 100MG *XL* TAB PO SCH ×2 (10:36→21:48)
[2017-04-01] MEDS: MULTIVITAMINS/MINERALS THERAP 1 TAB PO SCH (10:36)
[2017-04-01] MEDS: ENOXAPARIN 30 MG/0.3 ML SYR (J1650) SC SCH (10:37)
[2017-04-01 14:00] VITALS: BP 145/69
--- NOTE | 2017-04-01 19:52 | CR ---
DATE OF CONSULTATION: 04/01/2017 REFERRING PHYSICIAN: Dr. Ramin Ferguson. CHIEF COMPLAINT: Low back pain. HISTORY OF PRESENT ILLNESS: Neha is a 76-year-old female who was admitted on 03/28/2017 for sudden mental changes with combativeness. is at the bedside. The patient has a long history of dementia. Has a 6-month history of increasing low back pain and left leg weakness. The patient was started on tramadol and gabapentin by primary care and this caused mental changes. reports difficulty taking care of her in the home. States that they were scheduled to be seen at [facility] in [place] for an evaluation. states that it would be easier for him to get here to [facility] at our pain clinic. He will be requesting a referral to [facility] pain clinic from primary care, Dr. Huddleston. The patient is resting in bed, comfortable. states that she has been comfortable over the past 3 days. The patient is hard to assess and unable to answer questions appropriately. Appears comfortable. 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 SURGERIES: Appendectomy, total abdominal hysterectomy, tonsillectomy. SOCIAL HISTORY: Lives with her who is her pan washer. She is a nonsmoker. Denies alcohol use. No illicit drug use. FAMILY HISTORY: One sibling with early onset Alzheimer's dementia with rapid progression. Father age 76 with history of dementia. Mother age 85, , history of dementia. REVIEW OF SYSTEMS: Information is gathered from the at the bedside. Gastrointestinal - reporting bowel incontinence over the past 5 days. Genitourinary - usually has control of her urine. Decreased urination recently. History of stage III kidney disease. Cardiovascular - denies chest pains or shortness of breath. PHYSICAL EXAMINATION: Awake, alert. No distress noted. Poor eye contact. Vitals: 97.2, 80, 18, BP 145/69, O2 sats 97% on room air. Cardiac: S1,S2. Normal rate and rhythm. Respiratory - lung sounds are clear. Respirations are nonlabored. Inspection of spine - nontender with palpation. Extremities - warm. Moves freely in bed without discomfort. Lumbar - nontender with palpation. ASSESSMENT: Lumbago. PLAN: The patient can be seen at [facility] with referral from Dr. Huddleston. At that point in time, we will continue to evaluate her situation and consider interventional treatment as deemed appropriate. Thank you for allowing us to participate in the care of your patient. Should you have any questions or concerns please do not hesitate to contact me. GWEN
[2017-04-01] MEDS: NAMENDA 14 MG PO SCH (21:00)
[2017-04-01] MEDS: risperiDONE 0.5 MG TAB PO SCH (21:46)
[2017-04-01] MEDS: ATORVASTATIN 10 MG TAB PO SCH (21:49)
[2017-04-01] MEDS: DONEPEZIL 5 MG TAB PO SCH (21:49)
[2017-04-02 06:00] VITALS: BP 122/59
[2017-04-02] MEDS: TAMSULOSIN 0.4 MG CAP PO SCH (09:54)
[2017-04-02] MEDS: METOPROLOL SUCC (TopROL XL) 100MG *XL* TAB PO SCH ×2 (09:55→22:04)
[2017-04-02] MEDS: ENOXAPARIN 30 MG/0.3 ML SYR (J1650) SC SCH (09:55)
[2017-04-02] MEDS: MULTIVITAMINS/MINERALS THERAP 1 TAB PO SCH (09:55)
[2017-04-02] MEDS: CYANOCOBALAMIN 500 MCG TAB PO SCH (09:55)
[2017-04-02 14:00] VITALS: BP 131/73
[2017-04-02] MEDS: ATORVASTATIN 10 MG TAB PO SCH (22:01)
[2017-04-02] MEDS: risperiDONE 0.5 MG TAB PO SCH (22:01)
[2017-04-02] MEDS: DONEPEZIL 5 MG TAB PO SCH (22:01)
[2017-04-02] MEDS: NAMENDA 14 MG PO SCH (22:05)
[2017-04-03 06:00] VITALS: BP 139/67
[2017-04-03] MEDS: MULTIVITAMINS/MINERALS THERAP 1 TAB PO SCH (09:10)
[2017-04-03] MEDS: METOPROLOL SUCC (TopROL XL) 100MG *XL* TAB PO SCH ×2 (09:10→20:46)
[2017-04-03] MEDS: ENOXAPARIN 30 MG/0.3 ML SYR (J1650) SC SCH (09:10)
[2017-04-03] MEDS: TAMSULOSIN 0.4 MG CAP PO SCH (09:11)
[2017-04-03] MEDS: CYANOCOBALAMIN 500 MCG TAB PO SCH (09:11)
[2017-04-03 14:00] VITALS: BP 164/77
[2017-04-03] MEDS: DONEPEZIL 5 MG TAB PO SCH (20:43)
[2017-04-03] MEDS: ATORVASTATIN 10 MG TAB PO SCH (20:43)
[2017-04-03] MEDS: risperiDONE 0.5 MG TAB PO SCH (20:45)
[2017-04-03] MEDS: NAMENDA 14 MG PO SCH (20:45)
[2017-04-03] MEDS: ACETAMINOPHEN 650MG ER TAB (TYLENOL ARTHRITIS) PO PRN (20:46)
[2017-04-03 22:00] VITALS: BP 135/85
[2017-04-04 06:00] VITALS: BP 142/65
[2017-04-04 06:24] LABS: CALCIUM LEVEL 9.4 MG/DL (8.8-10.2); CREATININE FOR GFR 1.42 MG/DL (0.55-1.02); GLOMERULAR FILTRATION RATE 38.3 (>39); POTASSIUM SERUM 3.7 MEQ/L (3.5-5.1)
[2017-04-04] MEDS: METOPROLOL SUCC (TopROL XL) 100MG *XL* TAB PO SCH ×2 (10:12→21:47)
[2017-04-04] MEDS: ENOXAPARIN 30 MG/0.3 ML SYR (J1650) SC SCH (10:12)
[2017-04-04] MEDS: TAMSULOSIN 0.4 MG CAP PO SCH (10:13)
[2017-04-04] MEDS: CYANOCOBALAMIN 500 MCG TAB PO SCH (10:13)
[2017-04-04] MEDS: MULTIVITAMINS/MINERALS THERAP 1 TAB PO SCH (10:13)
[2017-04-04] MEDS: DONEPEZIL 5 MG TAB PO SCH (21:47)
[2017-04-04] MEDS: NAMENDA 14 MG PO SCH (21:48)
[2017-04-04] MEDS: ATORVASTATIN 10 MG TAB PO SCH (21:48)
[2017-04-04] MEDS: risperiDONE 0.5 MG TAB PO SCH (21:48)
[2017-04-05 06:00] VITALS: BP 132/76
[2017-04-05] MEDS: TAMSULOSIN 0.4 MG CAP PO SCH (11:02)
[2017-04-05] MEDS: METOPROLOL SUCC (TopROL XL) 100MG *XL* TAB PO SCH ×2 (11:03→21:14)
[2017-04-05] MEDS: ACETAMINOPHEN 650MG ER TAB (TYLENOL ARTHRITIS) PO PRN (11:07)
[2017-04-05] MEDS: MULTIVITAMINS/MINERALS THERAP 1 TAB PO SCH (11:07)
[2017-04-05] MEDS: CYANOCOBALAMIN 500 MCG TAB PO SCH (11:07)
[2017-04-05] MEDS: ENOXAPARIN 30 MG/0.3 ML SYR (J1650) SC SCH (11:07)
[2017-04-05] MEDS: NAMENDA 14 MG PO SCH (21:13)
[2017-04-05] MEDS: DONEPEZIL 5 MG TAB PO SCH (21:13)
[2017-04-05] MEDS: risperiDONE 0.5 MG TAB PO SCH (21:13)
[2017-04-05] MEDS: ATORVASTATIN 10 MG TAB PO SCH (21:14)
[2017-04-06 06:00] VITALS: BP 134/74
[2017-04-06] MEDS: CYANOCOBALAMIN 500 MCG TAB PO SCH (11:45)
[2017-04-06] MEDS: TAMSULOSIN 0.4 MG CAP PO SCH (11:45)
[2017-04-06] MEDS: MULTIVITAMINS/MINERALS THERAP 1 TAB PO SCH (11:45)
[2017-04-06] MEDS: ENOXAPARIN 30 MG/0.3 ML SYR (J1650) SC SCH (11:46)
[2017-04-06] MEDS: METOPROLOL SUCC (TopROL XL) 100MG *XL* TAB PO SCH ×2 (11:52→21:23)
[2017-04-06] MEDS: NAMENDA 14 MG PO SCH (21:22)
[2017-04-06] MEDS: DONEPEZIL 5 MG TAB PO SCH (21:23)
[2017-04-06] MEDS: ATORVASTATIN 10 MG TAB PO SCH (21:24)
[2017-04-06] MEDS: risperiDONE 0.5 MG TAB PO SCH (21:24)
[2017-04-06 22:00] VITALS: BP 142/84
[2017-04-07 06:00] VITALS: BP 145/70
[2017-04-07] MEDS: CYANOCOBALAMIN 500 MCG TAB PO SCH ×2 (08:58→09:00)
[2017-04-07] MEDS: MULTIVITAMINS/MINERALS THERAP 1 TAB PO SCH ×2 (08:58→09:00)
[2017-04-07] MEDS: TAMSULOSIN 0.4 MG CAP PO SCH ×2 (08:58→09:00)
[2017-04-07] MEDS: METOPROLOL SUCC (TopROL XL) 100MG *XL* TAB PO SCH ×3 (08:59→21:26)
[2017-04-07] MEDS: ENOXAPARIN 30 MG/0.3 ML SYR (J1650) SC SCH (09:00)
[2017-04-07] MEDS: NAMENDA 14 MG PO SCH (21:00)
[2017-04-07] MEDS: ATORVASTATIN 10 MG TAB PO SCH (21:25)
[2017-04-07] MEDS: DONEPEZIL 5 MG TAB PO SCH (21:26)
[2017-04-07] MEDS: risperiDONE 0.5 MG TAB PO SCH (21:26)
[2017-04-08 06:00] VITALS: BP 160/78
[2017-04-08] MEDS: METOPROLOL SUCC (TopROL XL) 100MG *XL* TAB PO SCH ×2 (09:42→21:07)
[2017-04-08] MEDS: CYANOCOBALAMIN 500 MCG TAB PO SCH (09:42)
[2017-04-08] MEDS: ENOXAPARIN 30 MG/0.3 ML SYR (J1650) SC SCH (09:43)
[2017-04-08] MEDS: TAMSULOSIN 0.4 MG CAP PO SCH (09:43)
[2017-04-08] MEDS: MULTIVITAMINS/MINERALS THERAP 1 TAB PO SCH (09:43)
[2017-04-08] MEDS: DONEPEZIL 5 MG TAB PO SCH (21:00)
[2017-04-08] MEDS: NAMENDA 14 MG PO SCH (21:00)
[2017-04-08] MEDS: risperiDONE 0.5 MG TAB PO SCH (21:06)
[2017-04-08] MEDS: ATORVASTATIN 10 MG TAB PO SCH (21:06)
[2017-04-09 06:00] VITALS: BP 155/78
[2017-04-09] MEDS: METOPROLOL SUCC (TopROL XL) 100MG *XL* TAB PO SCH ×2 (08:58→20:55)
[2017-04-09] MEDS: MULTIVITAMINS/MINERALS THERAP 1 TAB PO SCH (08:58)
[2017-04-09] MEDS: TAMSULOSIN 0.4 MG CAP PO SCH (08:59)
[2017-04-09] MEDS: ENOXAPARIN 30 MG/0.3 ML SYR (J1650) SC SCH (08:59)
[2017-04-09] MEDS: CYANOCOBALAMIN 500 MCG TAB PO SCH (08:59)
[2017-04-09] MEDS: risperiDONE 0.5 MG TAB PO SCH (20:50)
[2017-04-09] MEDS: ATORVASTATIN 10 MG TAB PO SCH (20:50)
[2017-04-09] MEDS: NAMENDA 14 MG PO SCH (20:55)
[2017-04-09] MEDS: DONEPEZIL 5 MG TAB PO SCH (20:55)
[2017-04-09 22:00] VITALS: BP 112/59
[2017-04-10 06:00] VITALS: BP 160/74
[2017-04-10] MEDS: CYANOCOBALAMIN 500 MCG TAB PO SCH (09:06)
[2017-04-10] MEDS: TAMSULOSIN 0.4 MG CAP PO SCH (09:06)
[2017-04-10] MEDS: METOPROLOL SUCC (TopROL XL) 100MG *XL* TAB PO SCH ×2 (09:06→21:41)
[2017-04-10] MEDS: MULTIVITAMINS/MINERALS THERAP 1 TAB PO SCH (09:07)
[2017-04-10] MEDS: ENOXAPARIN 30 MG/0.3 ML SYR (J1650) SC SCH (09:07)
[2017-04-10] MEDS: NAMENDA 14 MG PO SCH (21:41)
[2017-04-10] MEDS: risperiDONE 0.5 MG TAB PO SCH (21:41)
[2017-04-10] MEDS: ATORVASTATIN 10 MG TAB PO SCH (21:41)
[2017-04-10] MEDS: DONEPEZIL 5 MG TAB PO SCH (21:41)
--- NOTE | 2017-04-10 21:49 | IPNPDOC ---
Subjective Date Seen The patient was seen on 04/10/17. Subjective Chief Complaint/HPI The patient is a 76-year-old female admitted with a reason for visit of Acute Delirium,Dehydration,Leukocytosis. Events since last encounter Patient seen and examined at bedside today accompanied by her . states that she is near baseline today. He plans on her being discharge home Wednesday. Patient needs hospital bed at home to support her back pain. Pt will follow up with [facility] pain clinic as outpatient pending referral from Dr. Huddleston. Objective Physical Examination General Exam: Positive: Alert, No Acute Distress ENT Exam: Positive: Mucous membr. moist/pink Chest Exam: Positive: Clear to auscultation, Normal air movement Heart Exam: Positive: Rate Normal, Normal S1, Normal S2 Abdomen Exam: Positive: Normal bowel sounds, Soft, Negative: Tenderness Extremity Exam: Positive: Other (NEG SLR, left), Negative: Edema Psych Exam: Negative: Memory Intact, Oriented x 3 (Only oriented to person but not ) Assessment /Plan Problems (1) Alzheimer's dementia Status: Chronic Response to Treatment: Stable Problem Specific Plan: Monitor Clinically Problem Text: 04/10 Patient has returned to baseline. No reports of acute confusional state overnight or violent outbursts. Patient's plans for discharge of patient home with home services as recommended by PT. Reviewed note with [facility], script for hospital bed has been faxed to [facility], awaiting insurance approval. Anticipated discharge home on Wednesday. 03/31: she became confused, belligerent, striking at nurses and interfering with care. Give resperidone 0.25 with good result, will resume routine dosing since she seems to need Rx. (2) Acute delirium Status: Resolved Response to Treatment: Stable Problem Specific Plan: Monitor Clinically, Repeat Labs Problem Text: 03/29: Not dehydrated. BUN/Creat near her baseline. Likely d/t dehydration, has rec IVF which are not d/c, her renal function appears to have returned to baseline. She will need placement as her is no longer able to care for her tomorrow. Anticipated ALC 03/30. (3) Dehydration Status: Resolved Response to Treatment: Improving Problem Text: as above (4) CKD (chronic kidney disease), stage III Status: Chronic Response to Treatment: Stable, Worse Problem Specific Plan: Monitor Clinically Problem Text: 04/01: creatinine creeping up. po intake is poor. BP is low enough that I will d/c lisinopril at this time, follow bp, recheck creatinine in am. Appears to be back at baseline. (5) Sciatica, left side Status: Chronic Response to Treatment: Stable Problem Specific Plan: Consult Specialist Problem Text: patient seen 02/05/17 with c/o left sided leg pain. MRI was done later that month that demonstrated L5/S1 disc protrusion with evidence of compression of Left L5 nerve root. Pain clinic consult initiated and according to spouse was scheduled for 04/05/17. He is requesting pain clinic consult while here. However, nursing, PT and patient haven't reported pain. Reviewed with the spouse the natural history of disc herniation related pain and that about 90% of these episodes improve or resolve w/o intervention. Routine acetaminophen "arthritis strength" ordered and Pain Consult requested. (6) Urinary retention Status: Acute Response to Treatment: Stable Problem Text: Routinely has about 300+ urinary volume requiring straight cath. Tamsulosin added. Plan/VTE VTE Prophylaxis Ordered?: Yes Plan Anticipated Discharge: Home With Services VS, I&O, 24H, [facility] Vital Signs/I&O Vital Signs Date Time Temp Pulse Resp B/P (MAP) Pulse Ox O2 Delivery O2 Flow Rate FiO2 04/10/17 09:06 85 160/74 04/10/17 06:00 97.0 18 96 Room Air I&O- Last 24 Hours up to 6 AM 04/11/17 06:00 Intake Total 240 ml Output Total 200 ml Balance 40 ml GME ATTESTATION GME ATTESTATION My faculty preceptor for this patient encounter was physically present during the encounter and was fully available. All aspects of the patient interview, examination, medical decision making process, and medical care plan development were reviewed and approved by the faculty preceptor. The faculty preceptor is aware and concurs with the plan as stated in the body of this note and will attest to such by his/her cosignature. LILLIANA NEGRO DO Apr 10, 2017 16:51
[2017-04-11 06:00] VITALS: BP 138/62
[2017-04-11] MEDS: TAMSULOSIN 0.4 MG CAP PO SCH (08:30)
[2017-04-11] MEDS: CYANOCOBALAMIN 500 MCG TAB PO SCH (08:31)
[2017-04-11] MEDS: MULTIVITAMINS/MINERALS THERAP 1 TAB PO SCH (08:31)
[2017-04-11] MEDS: METOPROLOL SUCC (TopROL XL) 100MG *XL* TAB PO SCH ×2 (08:31→20:24)
[2017-04-11] MEDS: ENOXAPARIN 30 MG/0.3 ML SYR (J1650) SC SCH (16:18)
[2017-04-11] MEDS: NAMENDA 14 MG PO SCH (20:23)
[2017-04-11] MEDS: risperiDONE 0.5 MG TAB PO SCH (20:24)
[2017-04-11] MEDS: DONEPEZIL 5 MG TAB PO SCH (20:24)
[2017-04-11] MEDS: ATORVASTATIN 10 MG TAB PO SCH (20:24)
[2017-04-12 06:00] VITALS: BP 135/79
[2017-04-12] MEDS: ENOXAPARIN 30 MG/0.3 ML SYR (J1650) SC SCH (08:20)
[2017-04-12] MEDS: MULTIVITAMINS/MINERALS THERAP 1 TAB PO SCH (08:21)
[2017-04-12] MEDS: CYANOCOBALAMIN 500 MCG TAB PO SCH (08:21)
[2017-04-12] MEDS: METOPROLOL SUCC (TopROL XL) 100MG *XL* TAB PO SCH ×2 (08:21→22:04)
[2017-04-12] MEDS: TAMSULOSIN 0.4 MG CAP PO SCH (08:21)
[2017-04-12] MEDS: ATORVASTATIN 10 MG TAB PO SCH (21:59)
[2017-04-12 22:00] VITALS: BP 134/72
[2017-04-12] MEDS: DONEPEZIL 5 MG TAB PO SCH (22:00)
[2017-04-12] MEDS: risperiDONE 0.5 MG TAB PO SCH (22:00)
[2017-04-12] MEDS: NAMENDA 14 MG PO SCH (22:00)
[2017-04-13 06:00] VITALS: BP 145/65
[2017-04-13] MEDS ORDERED: RISP0.5T21 PO (08:20)
[2017-04-13] MEDS ORDERED: FLOM5CAP PO (08:20)
[2017-04-13] MEDS: CYANOCOBALAMIN 500 MCG TAB PO SCH (08:42)
[2017-04-13] MEDS: TAMSULOSIN 0.4 MG CAP PO SCH (08:42)
[2017-04-13] MEDS: MULTIVITAMINS/MINERALS THERAP 1 TAB PO SCH (08:42)
[2017-04-13 08:45] VITALS: BP 171/77
[2017-04-13] MEDS: ENOXAPARIN 30 MG/0.3 ML SYR (J1650) SC SCH (08:45)
[2017-04-13] MEDS: METOPROLOL SUCC (TopROL XL) 100MG *XL* TAB PO SCH (08:45)
--- NOTE | 2017-04-13 08:49 | DSES ---
DATE OF ADMISSION: 03/28/2017 DATE OF DISCHARGE: 04/13/2017 DISCHARGE SUMMARY ADDENDUM: The patient has to remain medically stable since she was placed on [facility] level of care. Her discharge diagnoses remain unchanged. Her discharge medications should be updated to include Risperdal 0.25 mg before bed, Flomax 0.4 mg daily, atorvastatin 10 mg daily, vitamin B12 1000 mcg daily, donepezil 10 mg before bed, fish oil one capsule twice daily, Namenda 14 mg before bed, metoprolol 100 mg twice daily, multivitamin two tablets daily. DISCHARGE PLAN: Will be to followup with Dr. Huddleston in 1-2 weeks. Activity should be as tolerated. Diet should be a consistent carbohydrate, no added salt. edited: 04/14/2017 1430 tkf GWEN
== END 2017-04-13 11:44 | disposition home health service (06) | DRG 57 ==
LOC: M ED 09:33 → EDBD 09:33 → M ED INP 16:50 → OBSVTOIN 18:15 → M MSPAV 18:50
PROVIDERS: ADMIT Family Medicine; ATTEND Family Medicine
DX: G30.9 Alzheimer's disease, unspecified (principal); F02.80 Dementia in other diseases classified elsewhere, unspecified severity, without behavioral disturbance, psychotic disturbance, mood disturbance, and anxiety; E86.0 Dehydration; I10 Essential (primary) hypertension; E78.5 Hyperlipidemia, unspecified; M54.42 Lumbago with sciatica, left side; N18.3 Chronic kidney disease, stage 3 (moderate); E11.22 Type 2 diabetes mellitus with diabetic chronic kidney disease; Z90.710 Acquired absence of both cervix and uterus; Z90.722 Acquired absence of ovaries, bilateral; Z79.84 Long term (current) use of oral hypoglycemic drugs; Z79.899 Other long term (current) drug therapy; R33.9 Retention of urine, unspecified

== ENCOUNTER → 2017-06-29 | Outpatient (REF) | payer MEDICARE, OTHER ==
[2017-06-29 14:40] LABS: PTH INTACT 38.9 PG/ML (18.5-88.0); TOTAL 25(OH) VITAMIN D 25.1 NG/ML (30.0-100.0)
[2017-06-29 14:45] LABS: ALBUMIN 3.5 GM/DL (3.2-5.2); ALBUMIN/GLOBULIN RATIO 1.03 (1.00-1.93); ALKALINE PHOSPHATASE 64 U/L (45-117); ALT/SGPT 31 U/L (12-78); ANION GAP 9 MEQ/L (8-16); AST/SGOT 37 U/L (7-37); BILIRUBIN,TOTAL 0.5 MG/DL (0.2-1.0); BLOOD UREA NITROGEN 18 MG/DL (7-18); CALCIUM LEVEL 9.9 MG/DL (8.8-10.2); CARBON DIOXIDE LEVEL 29 MEQ/L (21-32); CHLORIDE LEVEL 103 MEQ/L (98-107); CREATININE FOR GFR 1.28 MG/DL (0.55-1.30); GLUCOSE, FASTING 124 MG/DL (70-100); POTASSIUM SERUM 3.9 MEQ/L (3.5-5.1); SODIUM LEVEL 141 MEQ/L (136-145); TOTAL PROTEIN 6.9 GM/DL (6.4-8.2)
[2017-06-29 14:46] LABS: ESTIMATED AVERAGE GLUCOSE 117 MG/DL (60-110); HEMOGLOBIN A1c 5.7 %
== END ==
LOC: M SFHCPLAZ 10:21
DX: N18.3 Chronic kidney disease, stage 3 (moderate) (principal); M47.816 Spondylosis without myelopathy or radiculopathy, lumbar region; E11.9 Type 2 diabetes mellitus without complications; E55.9 Vitamin D deficiency, unspecified
CPT/HCPCS: 83735

== ENCOUNTER → 2017-10-17 | Outpatient (REF) | payer MEDICARE, OTHER ==
[2017-10-17 10:37] LABS: BASO % 0.6 % (0.0-1.0); EOS # 0.2 10^3/uL (0.0-0.50); EOS % 3.2 % (0.0-3.0); HEMATOCRIT 39.3 % (36.0-47.0); HEMOGLOBIN 13.2 g/dl (12.0-15.5); IMMATURE GRANULOCYTE % 0.8 % (0-3.0); LYMPH % 30.5 % (24.0-44.0); MEAN CORPUSCULAR HEMOGLOBIN 31.9 pg (27.0-33.0); MEAN CORPUSCULAR HGB CONC 33.6 g/dl (32.0-36.5); MEAN CORPUSCULAR VOLUME 94.9 fl (80.0-96.0); MONO # 0.6 10^3/uL (0.0-0.8); NEUTROPHILS # 3.7 10^3/uL (1.8-7.7); NEUTROPHILS % 55.9 % (36.0-66.0); PLATELET COUNT, AUTOMATED 215 10^3/uL (150-450); RED BLOOD COUNT 4.14 10^6/uL (4.00-5.40); RED CELL DISTRIBUTION WIDTH 12.2 % (11.5-14.5); RETIC HEMOGLOBIN EQUIVALENT 37.7 pg (24-36); RETICULOCYTE # 80.7 10^9/L (17-77); WHITE BLOOD COUNT 6.6 10^3/uL (4.0-10.0)
[2017-10-17 11:04] LABS: ALBUMIN 3.3 GM/DL (3.2-5.2); ALBUMIN/GLOBULIN RATIO 1.06 (1.00-1.93); ALKALINE PHOSPHATASE 53 U/L (45-117); ALT/SGPT 25 U/L (12-78); ANION GAP 8 MEQ/L (8-16); AST/SGOT 19 U/L (7-37); BILIRUBIN,TOTAL 0.4 MG/DL (0.2-1.0); BLOOD UREA NITROGEN 17 MG/DL (7-18); C REACTIVE PROTEIN QUANTITATIV < 0.30 MG/DL (0.00-0.30); CALCIUM LEVEL 9.4 MG/DL (8.8-10.2); CARBON DIOXIDE LEVEL 28 MEQ/L (21-32); CHLORIDE LEVEL 109 MEQ/L (98-107); CHOLESTEROL LEVEL 144 MG/DL (<200); CPK CREATINE PHOSPHOKINASE 50 U/L (26-192); CREATININE FOR GFR 1.19 MG/DL (0.55-1.30); GLOMERULAR FILTRATION RATE 46.8 (>39); GLUCOSE, FASTING 104 MG/DL (70-100); HDL CHOLESTEROL 40 MG/DL (>40); LDL CHOLESTEROL 55.6 MG/DL (<100); NON-HDL-C 104 MG/DL; POTASSIUM SERUM 3.9 MEQ/L (3.5-5.1); SODIUM LEVEL 145 MEQ/L (136-145); TOTAL PROTEIN 6.4 GM/DL (6.4-8.2); TRIGLYCERIDES LEVEL 242 MG/DL (<150)
[2017-10-18 10:00] LABS: VITAMIN B12 LEVEL > 2000 PG/ML (247-911)
== END ==
LOC: M LAB REF 10:29
DX: N18.6 End stage renal disease (principal); E78.2 Mixed hyperlipidemia
CPT/HCPCS: 82550

== ENCOUNTER 2018-04-04 08:12 | Inpatient (IN) | payer MEDICARE, BC, OTHER ==
[2018-04-04 08:41] LABS: VENOUS BASE EXCESS -0.2 (-2.0-2.0); VENOUS HCO3 24.2 MEQ/L (23.0-27.0); VENOUS PARTIAL PRESSURE CO2 38.9 mmHg (38.0-50.0); VENOUS PH 7.411 UNITS (7.330-7.430); VENOUS STANDARD HCO3 23.9 MEQ/L; VENOUS TOTAL CO2 25.4 MEQ/L (24.0-28.0)
[2018-04-04 08:44] LABS: BASO % 0.5 % (0.0-1.0); EOS # 0.1 10^3/uL (0.0-0.50); EOS % 1.9 % (0.0-3.0); HEMATOCRIT 44.6 % (36.0-47.0); HEMOGLOBIN 15.2 g/dl (12.0-15.5); IMMATURE GRANULOCYTE % 0.5 % (0-3.0); MEAN CORPUSCULAR HEMOGLOBIN 32.1 pg (27.0-33.0); MEAN CORPUSCULAR HGB CONC 34.1 g/dl (32.0-36.5); MEAN CORPUSCULAR VOLUME 94.1 fl (80.0-96.0); MONO # 0.6 10^3/uL (0.0-0.8); MONO % 7.3 % (0.0-5.0); NEUTROPHILS # 4.8 10^3/uL (1.8-7.7); NEUTROPHILS % 63.8 % (36.0-66.0); PLATELET COUNT, AUTOMATED 217 10^3/uL (150-450); RED BLOOD COUNT 4.74 10^6/uL (4.00-5.40); RED CELL DISTRIBUTION WIDTH 11.9 % (11.5-14.5); WHITE BLOOD COUNT 7.5 10^3/uL (4.0-10.0)
[2018-04-04] MEDS: MEMANTINE 5MG TABLET (NAMENDA) PO ×2 (09:00→22:26)
[2018-04-04] MEDS: MULTIVITAMINS/MINERALS THERAP 1 TAB PO (09:00)
[2018-04-04 09:01] LABS: LACTIC ACID SEPSIS PROTOCOL 1.7 MMOL/L (0.4-2.0)
[2018-04-04 09:04] LABS: AMMONIA 34 uMOL/L (<32)
[2018-04-04 09:05] LABS: ALBUMIN 3.6 GM/DL (3.2-5.2); ALBUMIN/GLOBULIN RATIO 1.24 (1.00-1.93); ALKALINE PHOSPHATASE 48 U/L (45-117); ALT/SGPT 46 U/L (12-78); ANION GAP 8 MEQ/L (8-16); AST/SGOT 46 U/L (7-37); BILIRUBIN,DIRECT 0.2 MG/DL (0.0-0.2); BILIRUBIN,TOTAL 0.6 MG/DL (0.2-1.0); BLOOD UREA NITROGEN 11 MG/DL (7-18); CALCIUM LEVEL 9.7 MG/DL (8.8-10.2); CARBON DIOXIDE LEVEL 26 MEQ/L (21-32); CHLORIDE LEVEL 106 MEQ/L (98-107); CK-MB VALUE MASS < 1.0 NG/ML (<3.6); CPK CREATINE PHOSPHOKINASE 123 U/L (26-192); CREATININE FOR GFR 1.18 MG/DL (0.55-1.30); GLOMERULAR FILTRATION RATE 47.3 (>39); GLUCOSE, FASTING 133 MG/DL (70-100); MB/CK RELATIVE INDEX 0.81 (< OR =4); POTASSIUM SERUM 4.4 MEQ/L (3.5-5.1); SODIUM LEVEL 140 MEQ/L (136-145); TOTAL PROTEIN 6.5 GM/DL (6.4-8.2); TROPONIN I 0.02 NG/ML (< 0.10)
[2018-04-04 09:17] LABS: BEDSIDE GLUCOSE 125 MG/DL (83-110)
[2018-04-04 09:18] LABS: OSMOLALITY SERUM 312 MOSM/KG (280-301)
[2018-04-04 09:58] LABS: AMORPHOUS SEDIMENT RFX SMALL (NEGATIVE); KETONE, URINE AUTO RFX NEGATIVE (NEGATIVE); MUCUS, URINE RFX SMALL (NEGATIVE); RBC, URINE AUTO RFX 1 /HPF (0-3); SPECIFIC GRAVITY UR AUTO RFX 1.011 (1.002-1.035); SQUAM EPITHELIAL CELL UR AURFX 2 /HPF (0-6)
[2018-04-04 09:59] LABS: LEUKOCYTE ESTERASE UR AUTO RFX 3+ (NEGATIVE); NITRITE, URINE AUTO RFX POSITIVE (NEGATIVE); WBC, URINE AUTO RFX 42 /HPF (0-3)
[2018-04-04] MEDS: NS 500 ML IV (10:22)
[2018-04-04] MEDS: NS 1,000 ML IV ×2 (10:22→11:23)
[2018-04-04] MEDS ORDERED: DEXTROSE 50% 50 ML SYRINGE IV (11:00)
[2018-04-04] MEDS ORDERED: ONDANSETRON 4MG/2ML VIAL (J2405) IV (11:00)
[2018-04-04] MEDS ORDERED: GLUCAGON FOR INJ 1 MG VIAL (J1610) SC (11:00)
[2018-04-04] MEDS ORDERED: GLUCOSE 4 GM CHEW TABLET PO (11:00)
[2018-04-04] MEDS ORDERED: cefTRIAXone SOD 1 GM in D5W MINI-BAG PLUS 50 ML IV (11:45)
[2018-04-04] MEDS: cefTRIAXone SOD 1 GM in D5W MINI-BAG PLUS 50 ML IV (12:14)
[2018-04-04] MEDS ORDERED: ACETAMINOPHEN 650MG ER TAB (TYLENOL ARTHRITIS) PO (15:00)
[2018-04-04] MEDS: CYANOCOBALAMIN 500 MCG TAB PO (17:01)
[2018-04-04] MEDS: TAMSULOSIN 0.4 MG CAP PO (17:01)
[2018-04-04 17:13] LABS: BEDSIDE GLUCOSE 123 MG/DL (83-110)
[2018-04-04 19:46] LABS: BEDSIDE GLUCOSE 156 MG/DL (83-110)
[2018-04-04] MEDS: risperiDONE 0.25 MG TAB PO (22:26)
[2018-04-04] MEDS: METOPROLOL SUCC (TopROL XL) 100MG *XL* TAB PO (22:26)
[2018-04-04] MEDS: ATORVASTATIN 10 MG TAB PO (22:26)
[2018-04-04] MEDS: DONEPEZIL 5 MG TAB PO (22:27)
[2018-04-05 05:40] LABS: BEDSIDE GLUCOSE 124 MG/DL (83-110)
[2018-04-05] MEDS: MEMANTINE 5MG TABLET (NAMENDA) PO (09:29)
[2018-04-05] MEDS: METOPROLOL SUCC (TopROL XL) 100MG *XL* TAB PO ×2 (09:29→22:26)
[2018-04-05] MEDS: MULTIVITAMINS/MINERALS THERAP 1 TAB PO (09:29)
[2018-04-05] MEDS: CYANOCOBALAMIN 500 MCG TAB PO (09:29)
[2018-04-05] MEDS: TAMSULOSIN 0.4 MG CAP PO (09:29)
[2018-04-05] MEDS: cefTRIAXone SOD 1 GM in D5W MINI-BAG PLUS 50 ML IV (11:23)
[2018-04-05 11:25] LABS: BEDSIDE GLUCOSE 159 MG/DL (83-110)
[2018-04-05 17:09] LABS: BEDSIDE GLUCOSE 118 MG/DL (83-110)
[2018-04-05] MEDS: ATORVASTATIN 10 MG TAB PO (22:25)
[2018-04-05] MEDS: risperiDONE 0.25 MG TAB PO (22:25)
[2018-04-05 22:28] LABS: BEDSIDE GLUCOSE 143 MG/DL (83-110)
[2018-04-06 06:39] LABS: BASO % 0.4 % (0.0-1.0); EOS # 0.1 10^3/uL (0.0-0.50); EOS % 1.7 % (0.0-3.0); HEMATOCRIT 39.8 % (36.0-47.0); HEMOGLOBIN 13.4 g/dl (12.0-15.5); IMMATURE GRANULOCYTE % 0.6 % (0-3.0); LYMPH # 2.3 10^3/uL (1.5-4.5); LYMPH % 28.4 % (24.0-44.0); MEAN CORPUSCULAR HEMOGLOBIN 32.3 pg (27.0-33.0); MEAN CORPUSCULAR HGB CONC 33.7 g/dl (32.0-36.5); MEAN CORPUSCULAR VOLUME 95.9 fl (80.0-96.0); MONO # 0.8 10^3/uL (0.0-0.8); MONO % 9.3 % (0.0-5.0); NEUTROPHILS # 4.8 10^3/uL (1.8-7.7); NEUTROPHILS % 59.6 % (36.0-66.0); PLATELET COUNT, AUTOMATED 182 10^3/uL (150-450); RED BLOOD COUNT 4.15 10^6/uL (4.00-5.40); RED CELL DISTRIBUTION WIDTH 12.2 % (11.5-14.5)
[2018-04-06 06:56] LABS: ANION GAP 9 MEQ/L (8-16); BLOOD UREA NITROGEN 14 MG/DL (7-18); CALCIUM LEVEL 9.4 MG/DL (8.8-10.2); CARBON DIOXIDE LEVEL 24 MEQ/L (21-32); CHLORIDE LEVEL 110 MEQ/L (98-107); CREATININE FOR GFR 1.23 MG/DL (0.55-1.30); GLOMERULAR FILTRATION RATE 45.1 (>39); GLUCOSE, FASTING 129 MG/DL (70-100); POTASSIUM SERUM 3.9 MEQ/L (3.5-5.1); SODIUM LEVEL 143 MEQ/L (136-145)
[2018-04-06] MEDS: MULTIVITAMINS/MINERALS THERAP 1 TAB PO (09:00)
[2018-04-06] MEDS ORDERED: INFLUENZA VIRUS VACCINE HIGH DOSE 0.5 ML SYRINGE (90662) IM (09:00)
[2018-04-06] MEDS: METOPROLOL SUCC (TopROL XL) 100MG *XL* TAB PO ×2 (10:20→21:05)
[2018-04-06] MEDS: CYANOCOBALAMIN 500 MCG TAB PO (10:21)
[2018-04-06] MEDS: TAMSULOSIN 0.4 MG CAP PO (10:21)
[2018-04-06] MEDS: FLUBLOK(EGG FREE)(QUAD)INFLUENZA VACC 0.5ML SYRINGE (90682)18YRS&OLDER IM (12:28)
[2018-04-06] MEDS: cefTRIAXone SOD 1 GM in D5W MINI-BAG PLUS 50 ML IV (12:28)
[2018-04-06 17:22] LABS: BEDSIDE GLUCOSE 161 MG/DL (83-110)
[2018-04-06] MEDS: risperiDONE 0.25 MG TAB PO (21:04)
[2018-04-06] MEDS: ATORVASTATIN 10 MG TAB PO (21:04)
[2018-04-07 03:15] LABS: BEDSIDE GLUCOSE 120 MG/DL (83-110)
[2018-04-07 03:15] LABS: BEDSIDE GLUCOSE 143 MG/DL (83-110)
[2018-04-07 06:26] LABS: BASO % 0.5 % (0.0-1.0); EOS # 0.2 10^3/uL (0.0-0.50); EOS % 2.3 % (0.0-3.0); HEMATOCRIT 37.7 % (36.0-47.0); IMMATURE GRANULOCYTE % 0.5 % (0-3.0); LYMPH # 1.6 10^3/uL (1.5-4.5); MEAN CORPUSCULAR HEMOGLOBIN 32.4 pg (27.0-33.0); MEAN CORPUSCULAR HGB CONC 34.5 g/dl (32.0-36.5); MONO # 0.8 10^3/uL (0.0-0.8); MONO % 9.7 % (0.0-5.0); NEUTROPHILS # 5.1 10^3/uL (1.8-7.7); PLATELET COUNT, AUTOMATED 182 10^3/uL (150-450); RED BLOOD COUNT 4.01 10^6/uL (4.00-5.40); WHITE BLOOD COUNT 7.7 10^3/uL (4.0-10.0)
[2018-04-07 06:55] LABS: ANION GAP 8 MEQ/L (8-16); BLOOD UREA NITROGEN 12 MG/DL (7-18); CALCIUM LEVEL 9.5 MG/DL (8.8-10.2); CARBON DIOXIDE LEVEL 27 MEQ/L (21-32); CHLORIDE LEVEL 107 MEQ/L (98-107); CREATININE FOR GFR 1.17 MG/DL (0.55-1.30); GLOMERULAR FILTRATION RATE 47.7 (>39); GLUCOSE, FASTING 131 MG/DL (70-100); POTASSIUM SERUM 3.7 MEQ/L (3.5-5.1); SODIUM LEVEL 142 MEQ/L (136-145)
[2018-04-07] MEDS: CYANOCOBALAMIN 500 MCG TAB PO (08:25)
[2018-04-07] MEDS: TAMSULOSIN 0.4 MG CAP PO (08:25)
[2018-04-07] MEDS: METOPROLOL SUCC (TopROL XL) 100MG *XL* TAB PO ×2 (08:28→20:26)
[2018-04-07] MEDS: MULTIVITAMINS CHILDREN'S CHEWABLE TABLET PO (12:29)
[2018-04-07] MEDS: cefTRIAXone SOD 1 GM in D5W MINI-BAG PLUS 50 ML IV (12:29)
[2018-04-07 17:12] LABS: BEDSIDE GLUCOSE 121 MG/DL (83-110)
[2018-04-07] MEDS: ATORVASTATIN 10 MG TAB PO (20:25)
[2018-04-07] MEDS: risperiDONE 0.25 MG TAB PO (20:25)
[2018-04-08 06:17] LABS: BASO % 0.5 % (0.0-1.0); EOS # 0.2 10^3/uL (0.0-0.50); EOS % 2.4 % (0.0-3.0); HEMATOCRIT 37.7 % (36.0-47.0); HEMOGLOBIN 12.6 g/dl (12.0-15.5); IMMATURE GRANULOCYTE % 0.7 % (0-3.0); LYMPH # 2.1 10^3/uL (1.5-4.5); LYMPH % 28.1 % (24.0-44.0); MEAN CORPUSCULAR HEMOGLOBIN 32.4 pg (27.0-33.0); MEAN CORPUSCULAR HGB CONC 33.4 g/dl (32.0-36.5); MEAN CORPUSCULAR VOLUME 96.9 fl (80.0-96.0); MONO # 0.7 10^3/uL (0.0-0.8); MONO % 9.2 % (0.0-5.0); NEUTROPHILS # 4.4 10^3/uL (1.8-7.7); NEUTROPHILS % 59.1 % (36.0-66.0); PLATELET COUNT, AUTOMATED 191 10^3/uL (150-450); RED BLOOD COUNT 3.89 10^6/uL (4.00-5.40); RED CELL DISTRIBUTION WIDTH 12.2 % (11.5-14.5); WHITE BLOOD COUNT 7.4 10^3/uL (4.0-10.0)
[2018-04-08 06:34] LABS: ANION GAP 7 MEQ/L (8-16); BLOOD UREA NITROGEN 17 MG/DL (7-18); CALCIUM LEVEL 9.1 MG/DL (8.8-10.2); CARBON DIOXIDE LEVEL 27 MEQ/L (21-32); CHLORIDE LEVEL 111 MEQ/L (98-107); CREATININE FOR GFR 1.22 MG/DL (0.55-1.30); GLOMERULAR FILTRATION RATE 45.5 (>39); GLUCOSE, FASTING 120 MG/DL (70-100); POTASSIUM SERUM 3.8 MEQ/L (3.5-5.1); SODIUM LEVEL 145 MEQ/L (136-145)
[2018-04-08] MEDS: METOPROLOL SUCC (TopROL XL) 100MG *XL* TAB PO ×2 (09:38→20:54)
[2018-04-08] MEDS: MULTIVITAMINS CHILDREN'S CHEWABLE TABLET PO (09:38)
[2018-04-08] MEDS: CYANOCOBALAMIN 500 MCG TAB PO (09:38)
[2018-04-08] MEDS: TAMSULOSIN 0.4 MG CAP PO (09:38)
[2018-04-08] MEDS: cefTRIAXone SOD 1 GM in D5W MINI-BAG PLUS 50 ML IV (12:19)
[2018-04-08 20:11] LABS: BEDSIDE GLUCOSE 121 MG/DL (83-110)
[2018-04-08] MEDS: ATORVASTATIN 10 MG TAB PO (20:53)
[2018-04-08] MEDS: risperiDONE 0.25 MG TAB PO (20:54)
[2018-04-09 06:23] LABS: BASO % 0.5 % (0.0-1.0); EOS # 0.2 10^3/uL (0.0-0.50); EOS % 3.3 % (0.0-3.0); HEMATOCRIT 37.4 % (36.0-47.0); HEMOGLOBIN 12.7 g/dl (12.0-15.5); IMMATURE GRANULOCYTE % 0.5 % (0-3.0); LYMPH # 1.8 10^3/uL (1.5-4.5); LYMPH % 24.3 % (24.0-44.0); MEAN CORPUSCULAR HEMOGLOBIN 32.2 pg (27.0-33.0); MEAN CORPUSCULAR VOLUME 94.9 fl (80.0-96.0); MONO # 0.7 10^3/uL (0.0-0.8); MONO % 9.2 % (0.0-5.0); NEUTROPHILS # 4.5 10^3/uL (1.8-7.7); NEUTROPHILS % 62.2 % (36.0-66.0); PLATELET COUNT, AUTOMATED 194 10^3/uL (150-450); RED BLOOD COUNT 3.94 10^6/uL (4.00-5.40); WHITE BLOOD COUNT 7.3 10^3/uL (4.0-10.0)
[2018-04-09 06:43] LABS: ANION GAP 8 MEQ/L (8-16); BLOOD UREA NITROGEN 16 MG/DL (7-18); CALCIUM LEVEL 9.2 MG/DL (8.8-10.2); CARBON DIOXIDE LEVEL 27 MEQ/L (21-32); CHLORIDE LEVEL 109 MEQ/L (98-107); CREATININE FOR GFR 1.14 MG/DL (0.55-1.30); GLOMERULAR FILTRATION RATE 49.2 (>39); GLUCOSE, FASTING 127 MG/DL (70-100); POTASSIUM SERUM 3.6 MEQ/L (3.5-5.1); SODIUM LEVEL 144 MEQ/L (136-145)
[2018-04-09] MEDS: METOPROLOL SUCC (TopROL XL) 100MG *XL* TAB PO ×2 (06:43→20:30)
[2018-04-09] MEDS: CYANOCOBALAMIN 500 MCG TAB PO (08:52)
[2018-04-09] MEDS: TAMSULOSIN 0.4 MG CAP PO (08:52)
[2018-04-09] MEDS: MULTIVITAMINS CHILDREN'S CHEWABLE TABLET PO (08:52)
[2018-04-09] MEDS: ATORVASTATIN 10 MG TAB PO (20:30)
[2018-04-09] MEDS: risperiDONE 0.25 MG TAB PO (20:30)
[2018-04-09] MEDS: EUCERIN 120GM CREAM TOP (20:31)
[2018-04-09 23:28] LABS: BEDSIDE GLUCOSE 150 MG/DL (83-110)
[2018-04-09 23:28] LABS: BEDSIDE GLUCOSE 157 MG/DL (83-110)
[2018-04-10 06:07] LABS: BEDSIDE GLUCOSE 157 MG/DL (83-110)
[2018-04-10 06:08] LABS: BEDSIDE GLUCOSE 122 MG/DL (83-110)
[2018-04-10] MEDS: MULTIVITAMINS CHILDREN'S CHEWABLE TABLET PO (08:55)
[2018-04-10] MEDS: TAMSULOSIN 0.4 MG CAP PO (08:55)
[2018-04-10] MEDS: CYANOCOBALAMIN 500 MCG TAB PO (08:55)
[2018-04-10] MEDS: METOPROLOL SUCC (TopROL XL) 100MG *XL* TAB PO ×2 (08:56→21:12)
[2018-04-10] MEDS: risperiDONE 0.25 MG TAB PO (21:11)
[2018-04-10] MEDS: ATORVASTATIN 10 MG TAB PO (21:11)
[2018-04-10] MEDS: EUCERIN 120GM CREAM TOP (21:12)
[2018-04-11] MEDS: LOSARTAN 50 MG TAB PO ×2 (06:21→20:59)
[2018-04-11] MEDS: CYANOCOBALAMIN 500 MCG TAB PO (09:20)
[2018-04-11] MEDS: TAMSULOSIN 0.4 MG CAP PO (09:20)
[2018-04-11] MEDS: METOPROLOL SUCC (TopROL XL) 100MG *XL* TAB PO ×2 (09:20→20:59)
[2018-04-11] MEDS: MULTIVITAMINS CHILDREN'S CHEWABLE TABLET PO (09:20)
[2018-04-11] MEDS: ATORVASTATIN 10 MG TAB PO (20:58)
[2018-04-11] MEDS: risperiDONE 0.25 MG TAB PO (20:58)
[2018-04-12] MEDS: CYANOCOBALAMIN 500 MCG TAB PO (08:29)
[2018-04-12] MEDS: MULTIVITAMINS CHILDREN'S CHEWABLE TABLET PO (08:29)
[2018-04-12] MEDS: METOPROLOL SUCC (TopROL XL) 100MG *XL* TAB PO ×2 (08:29→21:35)
[2018-04-12] MEDS: TAMSULOSIN 0.4 MG CAP PO (08:29)
[2018-04-12] MEDS: risperiDONE 0.25 MG TAB PO (21:35)
[2018-04-12] MEDS: ATORVASTATIN 10 MG TAB PO (21:35)
[2018-04-12] MEDS: LOSARTAN 50 MG TAB PO (21:36)
[2018-04-13] MEDS: TAMSULOSIN 0.4 MG CAP PO (08:39)
[2018-04-13] MEDS: MULTIVITAMINS CHILDREN'S CHEWABLE TABLET PO (08:39)
[2018-04-13] MEDS: CYANOCOBALAMIN 500 MCG TAB PO (08:40)
[2018-04-13] MEDS: METOPROLOL SUCC (TopROL XL) 100MG *XL* TAB PO ×2 (08:40→21:07)
[2018-04-13] MEDS: ATORVASTATIN 10 MG TAB PO (21:06)
[2018-04-13] MEDS: LOSARTAN 50 MG TAB PO (21:06)
[2018-04-13] MEDS: risperiDONE 0.25 MG TAB PO (21:06)
[2018-04-14] MEDS: CYANOCOBALAMIN 500 MCG TAB PO (09:39)
[2018-04-14] MEDS: TAMSULOSIN 0.4 MG CAP PO (09:39)
[2018-04-14] MEDS: MULTIVITAMINS CHILDREN'S CHEWABLE TABLET PO (09:39)
[2018-04-14] MEDS: METOPROLOL SUCC (TopROL XL) 100MG *XL* TAB PO ×2 (09:42→20:09)
[2018-04-14] MEDS: risperiDONE 0.25 MG TAB PO (20:06)
[2018-04-14] MEDS: LOSARTAN 50 MG TAB PO (20:09)
[2018-04-14] MEDS: ATORVASTATIN 10 MG TAB PO (20:09)
[2018-04-15] MEDS: MULTIVITAMINS CHILDREN'S CHEWABLE TABLET PO (09:16)
[2018-04-15] MEDS: TAMSULOSIN 0.4 MG CAP PO (09:16)
[2018-04-15] MEDS: METOPROLOL SUCC (TopROL XL) 100MG *XL* TAB PO ×2 (09:16→21:57)
[2018-04-15] MEDS: CYANOCOBALAMIN 500 MCG TAB PO (09:16)
[2018-04-15] MEDS: risperiDONE 0.25 MG TAB PO (21:57)
[2018-04-15] MEDS: ATORVASTATIN 10 MG TAB PO (21:57)
[2018-04-15] MEDS: LOSARTAN 50 MG TAB PO (21:57)
[2018-04-16] MEDS: TAMSULOSIN 0.4 MG CAP PO (10:14)
[2018-04-16] MEDS: MULTIVITAMINS CHILDREN'S CHEWABLE TABLET PO (10:14)
[2018-04-16] MEDS: METOPROLOL SUCC (TopROL XL) 100MG *XL* TAB PO ×2 (10:14→20:47)
[2018-04-16] MEDS: CYANOCOBALAMIN 500 MCG TAB PO (10:15)
[2018-04-16] MEDS: LOSARTAN 50 MG TAB PO (20:48)
[2018-04-16] MEDS: risperiDONE 0.25 MG TAB PO (20:48)
[2018-04-16] MEDS: ATORVASTATIN 10 MG TAB PO (20:48)
[2018-04-17] MEDS: TAMSULOSIN 0.4 MG CAP PO (08:33)
[2018-04-17] MEDS: CYANOCOBALAMIN 500 MCG TAB PO (08:33)
[2018-04-17] MEDS: MULTIVITAMINS CHILDREN'S CHEWABLE TABLET PO (08:33)
[2018-04-17] MEDS: METOPROLOL SUCC (TopROL XL) 100MG *XL* TAB PO ×2 (08:34→20:28)
[2018-04-17] MEDS: LOSARTAN 50 MG TAB PO (20:28)
[2018-04-17] MEDS: ATORVASTATIN 10 MG TAB PO (20:28)
[2018-04-17] MEDS: risperiDONE 0.25 MG TAB PO (20:28)
[2018-04-18] MEDS: METOPROLOL SUCC (TopROL XL) 100MG *XL* TAB PO ×2 (10:01→21:57)
[2018-04-18] MEDS: TAMSULOSIN 0.4 MG CAP PO (10:02)
[2018-04-18] MEDS: CYANOCOBALAMIN 500 MCG TAB PO (10:02)
[2018-04-18] MEDS: MULTIVITAMINS CHILDREN'S CHEWABLE TABLET PO (10:02)
[2018-04-18] MEDS: LOSARTAN 50 MG TAB PO (21:55)
[2018-04-18] MEDS: risperiDONE 0.25 MG TAB PO (21:56)
[2018-04-18] MEDS: ATORVASTATIN 10 MG TAB PO (21:56)
[2018-04-19] MEDS: TAMSULOSIN 0.4 MG CAP PO (10:01)
[2018-04-19] MEDS: METOPROLOL SUCC (TopROL XL) 100MG *XL* TAB PO (10:01)
[2018-04-19] MEDS: MULTIVITAMINS CHILDREN'S CHEWABLE TABLET PO (10:01)
[2018-04-19] MEDS: CYANOCOBALAMIN 500 MCG TAB PO (10:01)
== END 2018-04-19 13:15 | DRG 690 ==
LOC: M ED 08:12 → M ED INP 10:50 → M MSPAV 16:45
DX: N39.0 Urinary tract infection, site not specified (principal); G30.9 Alzheimer's disease, unspecified; F02.80 Dementia in other diseases classified elsewhere, unspecified severity, without behavioral disturbance, psychotic disturbance, mood disturbance, and anxiety; I12.9 Hypertensive chronic kidney disease with stage 1 through stage 4 chronic kidney disease, or unspecified chronic kidney disease; E78.5 Hyperlipidemia, unspecified; E66.9 Obesity, unspecified; R41.0 Disorientation, unspecified; B95.2 Enterococcus as the cause of diseases classified elsewhere; E55.9 Vitamin D deficiency, unspecified; N18.3 Chronic kidney disease, stage 3 (moderate); E53.8 Deficiency of other specified B group vitamins; E11.22 Type 2 diabetes mellitus with diabetic chronic kidney disease; E11.21 Type 2 diabetes mellitus with diabetic nephropathy; L71.9 Rosacea, unspecified; R33.9 Retention of urine, unspecified; Z90.49 Acquired absence of other specified parts of digestive tract; Z90.710 Acquired absence of both cervix and uterus; Z68.29 Body mass index [BMI] 29.0-29.9, adult; Z79.899 Other long term (current) drug therapy

== ENCOUNTER → 2018-04-27 | Outpatient (REF) ==
[~2018-04-27] MED LIST changes: +ACE65ERTAB PO; +ATOR1TAB19 PO; +CHLO25TA PO; +CORITAB6 PO; +COZA50TA PO; +DONETAB6 PO; +DOXY1CAP60 PO; +DOXY50TA2 PO; +FISH100049 PO; +FLOM0.4C39 PO; +GABA-1171 PO; +METF-414 PO; +METF500T13 PO; +MULT1CHW39 PO; +MULT1TAB10 PO; +NYST1POW9 TOP; +RISP0.253 PO; +RISP0.5T21 PO; +TRAM50TA2 PO; +VITA100072 PO
[2018-04-27 09:59] LABS: MEAN CORPUSCULAR HEMOGLOBIN 31.8 pg (27.0-33.0); MEAN CORPUSCULAR HGB CONC 32.5 g/dl (32.0-36.5); MEAN CORPUSCULAR VOLUME 97.8 fl (80.0-96.0); PLATELET COUNT, AUTOMATED 224 10^3/uL (150-450); RED BLOOD COUNT 4.09 10^6/uL (4.00-5.40); WHITE BLOOD COUNT 9.7 10^3/uL (4.0-10.0)
[2018-04-27 10:24] LABS: CALCIUM LEVEL 9.9 MG/DL (8.8-10.2); CREATININE FOR GFR 1.36 MG/DL (0.55-1.30); GLOMERULAR FILTRATION RATE 40.1 (>39)
== END ==
PROVIDERS: ATTEND Family Medicine
DX: I10 Essential (primary) hypertension (principal)

== ENCOUNTER → 2018-08-09 | Outpatient (REF) | payer MEDICARE, BC, OTHER ==
[~2018-08-09] MED LIST changes: -MULT1CHW39 PO; +MULT200T7 PO; +VITA100018 PO; -VITA100072 PO
== END ==
PROVIDERS: ATTEND Family Medicine
DX: R63.4 Abnormal weight loss (principal)

== ENCOUNTER → 2018-08-17 | Outpatient (REF) | payer MEDICARE, BC, OTHER ==
[2018-08-17 09:31] LABS: HEMATOCRIT 37.8 % (36.0-47.0); HEMOGLOBIN 12.8 g/dl (12.0-15.5); MEAN CORPUSCULAR HEMOGLOBIN 32.4 pg (27.0-33.0); MEAN CORPUSCULAR HGB CONC 33.9 g/dl (32.0-36.5); MEAN CORPUSCULAR VOLUME 95.7 fl (80.0-96.0); PLATELET COUNT, AUTOMATED 247 10^3/uL (150-450); RED BLOOD COUNT 3.95 10^6/uL (4.00-5.40); WHITE BLOOD COUNT 6.8 10^3/uL (4.0-10.0)
[2018-08-17 10:02] LABS: CALCIUM LEVEL 9.5 MG/DL (8.8-10.2); CREATININE FOR GFR 1.19 MG/DL (0.55-1.30); GLOMERULAR FILTRATION RATE 46.7 (>39); POTASSIUM SERUM 3.8 MEQ/L (3.5-5.1); THYROID STIMULATING HORMONE 1.48 uIU/ML (0.358-3.740)
== END ==
PROVIDERS: ATTEND Family Medicine
DX: R63.4 Abnormal weight loss (principal)

== ENCOUNTER → 2018-10-26 | Outpatient (REF) ==
[2018-10-26 09:09] LABS: HEMATOCRIT 34.9 % (36.0-47.0); HEMOGLOBIN 11.9 g/dl (12.0-15.5); MEAN CORPUSCULAR HEMOGLOBIN 33.1 pg (27.0-33.0); MEAN CORPUSCULAR HGB CONC 34.1 g/dl (32.0-36.5); MEAN CORPUSCULAR VOLUME 97.2 fl (80.0-96.0); PLATELET COUNT, AUTOMATED 224 10^3/uL (150-450); RED BLOOD COUNT 3.59 10^6/uL (4.00-5.40); WHITE BLOOD COUNT 6.6 10^3/uL (4.0-10.0)
[2018-10-26 09:26] LABS: CREATININE FOR GFR 1.16 MG/DL (0.55-1.30); GLOMERULAR FILTRATION RATE 48.1 (>39); POTASSIUM SERUM 4.5 MEQ/L (3.5-5.1)
== END ==
PROVIDERS: ATTEND Family Medicine
DX: I10 Essential (primary) hypertension (principal)

== ENCOUNTER → 2019-01-25 | Outpatient (REF) ==
[2019-01-25 10:13] LABS: HEMATOCRIT 35.9 % (36.0-47.0); HEMOGLOBIN 11.9 g/dl (12.0-15.5); MEAN CORPUSCULAR HEMOGLOBIN 31.9 pg (27.0-33.0); MEAN CORPUSCULAR HGB CONC 33.1 g/dl (32.0-36.5); MEAN CORPUSCULAR VOLUME 96.2 fl (80.0-96.0); PLATELET COUNT, AUTOMATED 218 10^3/uL (150-450); RED BLOOD COUNT 3.73 10^6/uL (4.00-5.40); WHITE BLOOD COUNT 6.7 10^3/uL (4.0-10.0)
[2019-01-25 10:34] LABS: CALCIUM LEVEL 9.8 MG/DL (8.8-10.2); CREATININE FOR GFR 1.3 MG/DL (0.55-1.30); GLOMERULAR FILTRATION RATE 42.2 (>39); POTASSIUM SERUM 4.1 MEQ/L (3.5-5.1)
== END ==
PROVIDERS: ATTEND Family Medicine
DX: I10 Essential (primary) hypertension (principal)

== ENCOUNTER → 2019-02-22 | Outpatient (REF) ==
[~2019-02-22] MED LIST changes: -DOXY50TA2 PO; +DOXY50TA3 PO
== END ==
PROVIDERS: ATTEND Family Medicine
DX: N18.9 Chronic kidney disease, unspecified (principal); I12.9 Hypertensive chronic kidney disease with stage 1 through stage 4 chronic kidney disease, or unspecified chronic kidney disease

== ENCOUNTER → 2019-04-24 | Outpatient (REF) ==
[2019-04-24 12:06] LABS: HEMATOCRIT 38.2 % (36.0-47.0); HEMOGLOBIN 12.3 g/dl (12.0-15.5); MEAN CORPUSCULAR HEMOGLOBIN 32.2 pg (27.0-33.0); MEAN CORPUSCULAR HGB CONC 32.2 g/dl (32.0-36.5); PLATELET COUNT, AUTOMATED 233 10^3/uL (150-450); RED BLOOD COUNT 3.82 10^6/uL (4.00-5.40); WHITE BLOOD COUNT 7.2 10^3/uL (4.0-10.0)
[2019-04-24 12:35] LABS: CALCIUM LEVEL 9.5 MG/DL (8.8-10.2); CREATININE FOR GFR 1.24 MG/DL (0.55-1.30); GLOMERULAR FILTRATION RATE 44.5 (>39)
== END ==
PROVIDERS: ATTEND Family Medicine
DX: I10 Essential (primary) hypertension (principal)

== ENCOUNTER → 2019-07-26 | Outpatient (REF) ==
[2019-07-26 09:53] LABS: HEMATOCRIT 38.9 % (36.0-47.0); HEMOGLOBIN 12.9 g/dl (12.0-15.5); MEAN CORPUSCULAR HEMOGLOBIN 31.8 pg (27.0-33.0); MEAN CORPUSCULAR HGB CONC 33.2 g/dl (32.0-36.5); MEAN CORPUSCULAR VOLUME 95.8 fl (80.0-96.0); PLATELET COUNT, AUTOMATED 221 10^3/uL (150-450); RED BLOOD COUNT 4.06 10^6/uL (4.00-5.40); WHITE BLOOD COUNT 9.3 10^3/uL (4.0-10.0)
[2019-07-26 10:19] LABS: BLOOD UREA NITROGEN 15 MG/DL (7-18); CALCIUM LEVEL 9.4 MG/DL (8.8-10.2); CARBON DIOXIDE LEVEL 24 MEQ/L (21-32); CHLORIDE LEVEL 113 MEQ/L (98-107); CREATININE FOR GFR 0.94 MG/DL (0.55-1.30); GLOMERULAR FILTRATION RATE > 60.0 (>39); GLUCOSE, FASTING 116 MG/DL (70-100); POTASSIUM SERUM 4.1 MEQ/L (3.5-5.1); SODIUM LEVEL 143 MEQ/L (136-145)
== END ==
PROVIDERS: ATTEND Family Medicine
DX: I10 Essential (primary) hypertension (principal)

== ENCOUNTER → 2019-08-28 | Outpatient (REF) | PROVIDERS: ATTEND Family Medicine | DX: I10 Essential (primary) hypertension (principal) ==

== ENCOUNTER → 2019-09-18 | Outpatient (REF) | PROVIDERS: ATTEND Internal Medicine | DX: Z03.818 Encounter for observation for suspected exposure to other biological agents ruled out (principal) ==

== ENCOUNTER → 2019-09-28 | Outpatient (REF) ==
[2019-09-28 11:30] LABS: HEMATOCRIT 38.8 % (36.0-47.0); HEMOGLOBIN 12.8 g/dl (12.0-15.5); MEAN CORPUSCULAR HEMOGLOBIN 32.5 pg (27.0-33.0); MEAN CORPUSCULAR VOLUME 98.5 fl (80.0-96.0); PLATELET COUNT, AUTOMATED 303 10^3/uL (150-450); RED BLOOD COUNT 3.94 10^6/uL (4.00-5.40); WHITE BLOOD COUNT 12.4 10^3/uL (4.0-10.0)
[2019-09-28 11:40] LABS: CALCIUM LEVEL 9.8 MG/DL (8.8-10.2); CREATININE FOR GFR 1.2 MG/DL (0.55-1.30); GLOMERULAR FILTRATION RATE 46.1 (>39); POTASSIUM SERUM 4.3 MEQ/L (3.5-5.1)
[2019-09-28 14:36] LABS: APPEARANCE, URINE TURBID (CLEAR); BACTERIA, URINE AUTO 3+ (NEGATIVE); BILIRUBIN, URINE AUTO NEGATIVE (NEGATIVE); BLOOD, URINE BLOOD 2+ (NEGATIVE); COLOR, URINE YELLOW (YELLOW); GLUCOSE, URINE (UA) AUTO NEGATIVE (NEGATIVE); KETONE, URINE AUTO TRACE mg/dL (NEGATIVE); LEUKOCYTE ESTERASE, URINE AUTO 2+ (NEGATIVE); NITRITE, URINE AUTO NEGATIVE (NEGATIVE); PROTEIN, URINE AUTO 2+ mg/dL (NEGATIVE); RBC, URINE AUTO 90 /HPF (0-3); SPECIFIC GRAVITY URINE AUTO 1.017 (1.002-1.035); SQUAMOUS EPITHELIAL CELL UR AU 4 /HPF (0-6); UROBILINOGEN, URINE AUTO 0.2 mg/dL (0.0-2.0); WBC, URINE AUTO TNTC /HPF (0-3)
== END ==
PROVIDERS: ATTEND Family Medicine
DX: R11.10 Vomiting, unspecified (principal); E86.0 Dehydration

== ENCOUNTER → 2019-09-29 | Outpatient (REF) ==
[2019-09-29 10:39] LABS: HEMATOCRIT 38.2 % (36.0-47.0); HEMOGLOBIN 12.4 g/dl (12.0-15.5); MEAN CORPUSCULAR HGB CONC 32.5 g/dl (32.0-36.5); MEAN CORPUSCULAR VOLUME 98.5 fl (80.0-96.0); PLATELET COUNT, AUTOMATED 265 10^3/uL (150-450); RED BLOOD COUNT 3.88 10^6/uL (4.00-5.40); WHITE BLOOD COUNT 8.1 10^3/uL (4.0-10.0)
[2019-09-29 10:52] LABS: CALCIUM LEVEL 8.9 MG/DL (8.8-10.2); CREATININE FOR GFR 1.08 MG/DL (0.55-1.30); GLOMERULAR FILTRATION RATE 52.1 (>39); POTASSIUM SERUM 3.6 MEQ/L (3.5-5.1)
== END ==
PROVIDERS: ATTEND Internal Medicine
DX: E86.0 Dehydration (principal)

== ENCOUNTER → 2019-10-25 | Outpatient (REF) ==
[~2019-10-25] MED LIST changes: +LISI10TA22 PO; -LISI10TA4 PO
[2019-10-25 11:28] LABS: HEMATOCRIT 40.8 % (36.0-47.0); HEMOGLOBIN 13.4 g/dl (12.0-15.5); MEAN CORPUSCULAR HEMOGLOBIN 32.4 pg (27.0-33.0); MEAN CORPUSCULAR HGB CONC 32.8 g/dl (32.0-36.5); MEAN CORPUSCULAR VOLUME 98.8 fl (80.0-96.0); PLATELET COUNT, AUTOMATED 261 10^3/uL (150-450); RED BLOOD COUNT 4.13 10^6/uL (4.00-5.40); WHITE BLOOD COUNT 10.6 10^3/uL (4.0-10.0)
[2019-10-25 12:01] LABS: CALCIUM LEVEL 10.3 MG/DL (8.8-10.2); CREATININE FOR GFR 1.12 MG/DL (0.55-1.30)
== END ==
PROVIDERS: ATTEND Family Medicine
DX: I10 Essential (primary) hypertension (principal)

== ENCOUNTER → 2019-11-19 | Outpatient (REF) | payer MEDICARE, BC, OTHER ==
[~2019-11-19] MED LIST changes: -LISI10TA22 PO; +LISI10TA4 PO
[2019-11-19 11:39] LABS: HEMATOCRIT 38.5 % (36.0-47.0); HEMOGLOBIN 12.8 g/dl (12.0-15.5); MEAN CORPUSCULAR HEMOGLOBIN 32.7 pg (27.0-33.0); MEAN CORPUSCULAR HGB CONC 33.2 g/dl (32.0-36.5); MEAN CORPUSCULAR VOLUME 98.5 fl (80.0-96.0); PLATELET COUNT, AUTOMATED 307 10^3/uL (150-450); RED BLOOD COUNT 3.91 10^6/uL (4.00-5.40); WHITE BLOOD COUNT 11.3 10^3/uL (4.0-10.0)
[2019-11-19 11:43] LABS: CREATININE FOR GFR 1.29 MG/DL (0.55-1.30); GLOMERULAR FILTRATION RATE 42.4 (>39); POTASSIUM SERUM 4.2 MEQ/L (3.5-5.1)
== END ==
PROVIDERS: ATTEND Family Medicine
DX: R11.10 Vomiting, unspecified (principal)

== ENCOUNTER → 2019-11-21 | Outpatient (REF) | payer MEDICARE, BC, OTHER ==
[2019-11-21 10:36] LABS: HEMATOCRIT 39.2 % (36.0-47.0); HEMOGLOBIN 12.8 g/dl (12.0-15.5); MEAN CORPUSCULAR HEMOGLOBIN 32.4 pg (27.0-33.0); MEAN CORPUSCULAR HGB CONC 32.7 g/dl (32.0-36.5); MEAN CORPUSCULAR VOLUME 99.2 fl (80.0-96.0); PLATELET COUNT, AUTOMATED 267 10^3/uL (150-450); RED BLOOD COUNT 3.95 10^6/uL (4.00-5.40); WHITE BLOOD COUNT 9.4 10^3/uL (4.0-10.0)
[2019-11-21 11:06] LABS: CALCIUM LEVEL 9.8 MG/DL (8.8-10.2); CREATININE FOR GFR 1.14 MG/DL (0.55-1.30); GLOMERULAR FILTRATION RATE 48.9 (>39); POTASSIUM SERUM 3.8 MEQ/L (3.5-5.1)
== END ==
PROVIDERS: ATTEND Internal Medicine
DX: R11.10 Vomiting, unspecified (principal)

== ENCOUNTER → 2019-11-29 | Outpatient (REF) | payer MEDICARE, BC, OTHER ==
[2020-01-12 10:29] LABS: BASO % 0.3 % (0.0-1.0); EOS # 0.1 10^3/uL (0.0-0.5); EOS % 0.8 % (0.0-3.0); HEMATOCRIT 38.3 % (36.0-47.0); HEMOGLOBIN 12.9 g/dl (12.0-15.5); LYMPH # 2.3 10^3/uL (1.5-5.0); LYMPH % 21.3 % (24.0-44.0); MEAN CORPUSCULAR HEMOGLOBIN 33.1 pg (27.0-33.0); MEAN CORPUSCULAR HGB CONC 33.7 g/dl (32.0-36.5); MEAN CORPUSCULAR VOLUME 98.2 fl (80.0-96.0); MONO # 0.9 10^3/uL (0.0-0.8); MONO % 8.5 % (0.0-5.0); NEUTROPHILS # 7.4 10^3/uL (1.5-8.5); NEUTROPHILS % 68.4 % (36.0-66.0); PLATELET COUNT, AUTOMATED 287 10^3/uL (150-450); WHITE BLOOD COUNT 10.8 10^3/uL (4.0-10.0)
[2020-01-14 02:19] LABS: CALCIUM LEVEL 9.7 MG/DL (8.8-10.2)
[2020-01-14 04:59] LABS: CREATININE FOR GFR 1.05 MG/DL (0.55-1.30); GLOMERULAR FILTRATION RATE 53.8 (>39); POTASSIUM SERUM 3.8 MEQ/L (3.5-5.1)
[2020-01-14 05:00] LABS: ALBUMIN 3.2 GM/DL (3.2-5.2); BILIRUBIN,TOTAL 0.2 MG/DL (0.2-1.0); TOTAL PROTEIN 6.4 GM/DL (6.4-8.2)
== END ==
PROVIDERS: ATTEND Physician Assistant
DX: R11.2 Nausea with vomiting, unspecified (principal)

== ENCOUNTER → 2019-11-30 | Outpatient (CLI) | payer MEDICARE, BC, OTHER ==
--- NOTE | 2020-01-22 10:33 | REP ---
CT OF THE ABDOMEN AND PELVIS WITHOUT CONTRAST: HISTORY: Vomiting. COMPARISON: None available. FINDINGS: Preliminary digital patient escort radiographs are unremarkable. The lung bases are clear on axial CT images. The liver and spleen are normal in size. There is a hepatic cyst in the right lobe of the liver measuring 3.2 cm in greatest diameter. Normal adrenal glands are seen. The pancreas is unremarkable. There is heavy vascular calcification in a normal caliber aorta and in its major branches. No retroperitoneal mass or adenopathy is seen. The kidneys are morphologically intact. No hydronephrosis. No urinary tract calculus is seen. The small and large intestinal bowel loops are normal in the abdomen and pelvis. The uterus is surgically absent. There are calcific opacities in the gallbladder consistent with cholelithiasis. No abdominal wall defect is seen. No bony destructive lesion is appreciated. IMPRESSION: Cholelithiasis. Small benign right lobe hepatic cyst. Otherwise negative CT abdomen and pelvis without IV or oral contrast. MTDD
== END ==
LOC: M LAB 09:50
PROVIDERS: ATTEND Family Medicine
DX: R11.10 Vomiting, unspecified (principal)

== ENCOUNTER → 2019-11-30 | Outpatient (REF) | payer MEDICARE, BC, OTHER ==
[2020-01-12 11:04] LABS: BASO # 0.1 10^3/uL (0.0-0.2); BASO % 0.9 % (0.0-1.0); EOS # 0.3 10^3/uL (0.0-0.5); EOS % 3.8 % (0.0-3.0); HEMATOCRIT 40.8 % (36.0-47.0); HEMOGLOBIN 13.7 g/dl (12.0-15.5); LYMPH # 1.5 10^3/uL (1.5-5.0); LYMPH % 22.4 % (24.0-44.0); MEAN CORPUSCULAR HEMOGLOBIN 30.6 pg (27.0-33.0); MEAN CORPUSCULAR HGB CONC 33.6 g/dl (32.0-36.5); MEAN CORPUSCULAR VOLUME 91.1 fl (80.0-96.0); MONO # 0.4 10^3/uL (0.0-0.8); MONO % 6.4 % (0.0-5.0); NEUTROPHILS # 4.4 10^3/uL (1.5-8.5); NEUTROPHILS % 66.2 % (36.0-66.0); PLATELET COUNT, AUTOMATED 196 10^3/uL (150-450); RED BLOOD COUNT 4.48 10^6/uL (4.00-5.40); WHITE BLOOD COUNT 6.6 10^3/uL (4.0-10.0)
[2020-01-14 04:52] LABS: ALBUMIN 3.1 GM/DL (3.2-5.2); BILIRUBIN,TOTAL 0.4 MG/DL (0.2-1.0); CALCIUM LEVEL 9.7 MG/DL (8.8-10.2); CREATININE FOR GFR 1.09 MG/DL (0.55-1.30); GLOMERULAR FILTRATION RATE 51.5 (>39); POTASSIUM SERUM 4.3 MEQ/L (3.5-5.1); TOTAL PROTEIN 6.2 GM/DL (6.4-8.2)
== END ==
PROVIDERS: ATTEND Internal Medicine
DX: I10 Essential (primary) hypertension (principal)

== ENCOUNTER → 2020-02-01 | Outpatient (REF) | payer MEDICARE, BC, OTHER ==
[2020-02-01 10:12] LABS: HEMATOCRIT 37.4 % (36.0-47.0); HEMOGLOBIN 12.5 g/dl (12.0-15.5); MEAN CORPUSCULAR HEMOGLOBIN 32.3 pg (27.0-33.0); MEAN CORPUSCULAR HGB CONC 33.4 g/dl (32.0-36.5); MEAN CORPUSCULAR VOLUME 96.6 fl (80.0-96.0); PLATELET COUNT, AUTOMATED 215 10^3/uL (150-450); RED BLOOD COUNT 3.87 10^6/uL (4.00-5.40); WHITE BLOOD COUNT 8.5 10^3/uL (4.0-10.0)
[2020-02-01 10:40] LABS: BLOOD UREA NITROGEN 15 MG/DL (7-18); CALCIUM LEVEL 9.4 MG/DL (8.8-10.2); CARBON DIOXIDE LEVEL 22 MEQ/L (21-32); CHLORIDE LEVEL 110 MEQ/L (98-107); CREATININE FOR GFR 0.95 MG/DL (0.55-1.30); GLOMERULAR FILTRATION RATE > 60.0 (>39); GLUCOSE, FASTING 180 MG/DL (70-100); SODIUM LEVEL 140 MEQ/L (136-145)
== END ==
PROVIDERS: ATTEND Internal Medicine
DX: I10 Essential (primary) hypertension (principal)

== ENCOUNTER → 2020-02-27 | Outpatient (REF) | payer MEDICARE, BC, OTHER | PROVIDERS: ATTEND Internal Medicine | DX: I10 Essential (primary) hypertension (principal) ==

== ENCOUNTER → 2020-03-14 | Outpatient (REF) | PROVIDERS: ATTEND Internal Medicine | DX: Z20.828 Contact with and (suspected) exposure to other viral communicable diseases (principal) ==

== ENCOUNTER → 2020-03-21 | Outpatient (REF) | payer MEDICARE, BC, OTHER ==
[~2020-03-21] MED LIST changes: +LISI10TA22 PO; -LISI10TA4 PO
== END ==
LOC: EDSTATUS 04-30 12:04
PROVIDERS: ATTEND Internal Medicine
DX: Z20.828 Contact with and (suspected) exposure to other viral communicable diseases (principal)

== ENCOUNTER → 2020-03-27 | Outpatient (REF) | payer MEDICARE, BC, OTHER | PROVIDERS: ATTEND Internal Medicine | DX: Z20.828 Contact with and (suspected) exposure to other viral communicable diseases (principal) ==

== ENCOUNTER → 2020-04-14 | Outpatient (REF) | payer MEDICARE, BC, OTHER ==
[~2020-04-14] MED LIST changes: -LISI10TA22 PO; +LISI10TA4 PO
== END ==
PROVIDERS: ATTEND Internal Medicine
DX: Z20.828 Contact with and (suspected) exposure to other viral communicable diseases (principal)

== ENCOUNTER → 2020-04-18 | Outpatient (REF) | payer MEDICARE, BC, OTHER | PROVIDERS: ATTEND Internal Medicine | DX: Z20.828 Contact with and (suspected) exposure to other viral communicable diseases (principal) ==

== ENCOUNTER → 2020-04-24 | Outpatient (REF) | payer MEDICARE, BC, OTHER | PROVIDERS: ATTEND Internal Medicine | DX: Z20.828 Contact with and (suspected) exposure to other viral communicable diseases (principal) ==

== ENCOUNTER → 2020-04-30 | Outpatient (REF) | payer MEDICARE, BC, OTHER | PROVIDERS: ATTEND Internal Medicine | DX: Z20.828 Contact with and (suspected) exposure to other viral communicable diseases (principal) ==

== ENCOUNTER → 2020-05-06 | Outpatient (REF) | payer MEDICARE, BC, OTHER | PROVIDERS: ATTEND Internal Medicine | DX: Z20.822 Contact with and (suspected) exposure to COVID-19 (principal) ==

== ENCOUNTER → 2020-05-10 | Outpatient (REF) | payer MEDICARE, BC, OTHER | PROVIDERS: ATTEND Internal Medicine | DX: Z20.822 Contact with and (suspected) exposure to COVID-19 (principal) ==

== ENCOUNTER → 2020-05-15 | Outpatient (REF) | payer MEDICARE, BC, OTHER | PROVIDERS: ATTEND Internal Medicine | DX: Z20.822 Contact with and (suspected) exposure to COVID-19 (principal) ==

== ENCOUNTER → 2020-05-22 | Outpatient (REF) | payer MEDICARE, BC, OTHER | PROVIDERS: ATTEND Internal Medicine | DX: Z20.822 Contact with and (suspected) exposure to COVID-19 (principal) ==

== ENCOUNTER → 2020-05-29 | Outpatient (REF) | payer MEDICARE, BC, OTHER ==
[2020-05-29 11:59] LABS: HEMATOCRIT 34.7 % (36.0-47.0); HEMOGLOBIN 11.5 g/dl (12.0-15.5); MEAN CORPUSCULAR HEMOGLOBIN 32.6 pg (27.0-33.0); MEAN CORPUSCULAR HGB CONC 33.1 g/dl (32.0-36.5); MEAN CORPUSCULAR VOLUME 98.3 fl (80.0-96.0); PLATELET COUNT, AUTOMATED 239 10^3/uL (150-450); RED BLOOD COUNT 3.53 10^6/uL (4.00-5.40); WHITE BLOOD COUNT 9.8 10^3/uL (4.0-10.0)
[2020-05-29 12:25] LABS: CALCIUM LEVEL 10.2 MG/DL (8.8-10.2); CREATININE FOR GFR 1.05 MG/DL (0.55-1.30); GLOMERULAR FILTRATION RATE 53.8 (>39); POTASSIUM SERUM 4.2 MEQ/L (3.5-5.1)
== END ==
PROVIDERS: ATTEND Internal Medicine
DX: Z20.822 Contact with and (suspected) exposure to COVID-19 (principal); I10 Essential (primary) hypertension
CPT/HCPCS: 36415; 80048; 85027; U0003

== ENCOUNTER → 2020-06-05 | Outpatient (REF) | payer MEDICARE, BC, OTHER | PROVIDERS: ATTEND Internal Medicine | DX: Z20.822 Contact with and (suspected) exposure to COVID-19 (principal) ==

== ENCOUNTER → 2020-06-12 | Outpatient (REF) | payer MEDICARE, BC, OTHER ==
[~2020-06-12] MED LIST changes: +LISI10TA22 PO; -LISI10TA4 PO
== END ==
PROVIDERS: ATTEND Internal Medicine
DX: Z20.822 Contact with and (suspected) exposure to COVID-19 (principal)

== ENCOUNTER → 2020-06-19 | Outpatient (REF) | payer MEDICARE, BC, OTHER | PROVIDERS: ATTEND Internal Medicine | DX: Z20.822 Contact with and (suspected) exposure to COVID-19 (principal) ==

== ENCOUNTER → 2020-06-26 | Outpatient (REF) | payer MEDICARE, BC, OTHER | PROVIDERS: ATTEND Internal Medicine | DX: Z20.822 Contact with and (suspected) exposure to COVID-19 (principal) ==

== ENCOUNTER → 2020-07-03 | Outpatient (REF) | payer MEDICARE, BC, OTHER | PROVIDERS: ATTEND Internal Medicine | DX: Z20.822 Contact with and (suspected) exposure to COVID-19 (principal) ==

== ENCOUNTER → 2020-07-10 | Outpatient (REF) | payer MEDICARE, BC, OTHER | PROVIDERS: ATTEND Internal Medicine | DX: Z11.52 Encounter for screening for COVID-19 (principal) ==

== ENCOUNTER → 2020-07-22 | Outpatient (REF) | payer MEDICARE, BC, OTHER ==
[2020-07-22 10:39] LABS: HEMATOCRIT 37.8 % (36.0-47.0); MEAN CORPUSCULAR HEMOGLOBIN 31.9 pg (27.0-33.0); MEAN CORPUSCULAR HGB CONC 31.7 g/dl (32.0-36.5); MEAN CORPUSCULAR VOLUME 100.5 fl (80.0-96.0); PLATELET COUNT, AUTOMATED 270 10^3/uL (150-450); RED BLOOD COUNT 3.76 10^6/uL (4.00-5.40); WHITE BLOOD COUNT 8.7 10^3/uL (4.0-10.0)
[2020-07-22 11:17] LABS: BLOOD UREA NITROGEN 20 MG/DL (7-18); CARBON DIOXIDE LEVEL 18 MEQ/L (21-32); CHLORIDE LEVEL 110 MEQ/L (98-107); CREATININE FOR GFR 0.92 MG/DL (0.55-1.30); GLOMERULAR FILTRATION RATE > 60.0 (>32); GLUCOSE, FASTING 118 MG/DL (70-100); POTASSIUM SERUM 4.1 MEQ/L (3.5-5.1); SODIUM LEVEL 140 MEQ/L (136-145)
== END ==
PROVIDERS: ATTEND Internal Medicine
DX: I10 Essential (primary) hypertension (principal)

== ENCOUNTER → 2020-08-13 | Outpatient (REF) | payer MEDICARE, BC, OTHER | PROVIDERS: ATTEND Internal Medicine | DX: Z20.822 Contact with and (suspected) exposure to COVID-19 (principal) ==

== ENCOUNTER → 2020-08-27 | Outpatient (REF) | payer MEDICARE, BC, OTHER | PROVIDERS: ATTEND Internal Medicine | DX: N18.9 Chronic kidney disease, unspecified (principal); I12.9 Hypertensive chronic kidney disease with stage 1 through stage 4 chronic kidney disease, or unspecified chronic kidney disease; Z20.822 Contact with and (suspected) exposure to COVID-19 | CPT/HCPCS: 36415; 84443; U0003 ==

== ENCOUNTER → 2021-01-22 | Outpatient (REF) | payer MEDICARE, BC, OTHER ==
[2021-01-22 10:50] LABS: HEMATOCRIT 38.5 % (36.0-47.0); HEMOGLOBIN 12.8 g/dl (12.0-15.5); MEAN CORPUSCULAR HEMOGLOBIN 32.4 pg (27.0-33.0); MEAN CORPUSCULAR HGB CONC 33.2 g/dl (32.0-36.5); MEAN CORPUSCULAR VOLUME 97.5 fl (80.0-96.0); PLATELET COUNT, AUTOMATED 262 10^3/uL (150-450); RED BLOOD COUNT 3.95 10^6/uL (4.00-5.40); WHITE BLOOD COUNT 9.2 10^3/uL (4.0-10.0)
[2021-01-22 11:13] LABS: CALCIUM LEVEL 10.1 MG/DL (8.8-10.2); CREATININE FOR GFR 0.98 MG/DL (0.55-1.30); GLOMERULAR FILTRATION RATE 58.1 (>32); POTASSIUM SERUM 4.3 MEQ/L (3.5-5.1)
== END ==
PROVIDERS: ATTEND Physician Assistant
DX: I10 Essential (primary) hypertension (principal)

== ENCOUNTER → 2021-02-19 | Outpatient (REF) | payer MEDICARE, BC, OTHER ==
[~2021-02-19] MED LIST changes: -DOXY1CAP60 PO; +DOXY50CA51 PO
== END ==
PROVIDERS: ATTEND Internal Medicine
DX: I12.9 Hypertensive chronic kidney disease with stage 1 through stage 4 chronic kidney disease, or unspecified chronic kidney disease (principal); N18.9 Chronic kidney disease, unspecified

== ENCOUNTER → 2021-04-23 | Outpatient (REF) | payer MEDICARE, BC, OTHER ==
[2021-04-23 11:45] LABS: HEMATOCRIT 40.3 % (36.0-47.0); HEMOGLOBIN 13.1 g/dl (12.0-15.5); MEAN CORPUSCULAR HEMOGLOBIN 31.9 pg (27.0-33.0); MEAN CORPUSCULAR HGB CONC 32.5 g/dl (32.0-36.5); MEAN CORPUSCULAR VOLUME 98.1 fl (80.0-96.0); PLATELET COUNT, AUTOMATED 249 10^3/uL (150-450); RED BLOOD COUNT 4.11 10^6/uL (4.00-5.40); WHITE BLOOD COUNT 9.9 10^3/uL (4.0-10.0)
[2021-04-23 12:11] LABS: CREATININE FOR GFR 1.04 MG/DL (0.55-1.30); GLOMERULAR FILTRATION RATE 54.3 (>32); POTASSIUM SERUM 4.3 MEQ/L (3.5-5.1)
== END ==
PROVIDERS: ATTEND Internal Medicine
DX: N18.9 Chronic kidney disease, unspecified (principal)

== ENCOUNTER → 2021-06-13 | Outpatient (REF) | payer MEDICARE, BC ==
[~2021-06-13] MED LIST changes: +DONE-1 PO; -DONETAB6 PO
[2021-06-13 17:48] LABS: HEMATOCRIT 42.2 % (36.0-47.0); HEMOGLOBIN 13.9 g/dl (12.0-15.5); MEAN CORPUSCULAR HEMOGLOBIN 31.7 pg (27.0-33.0); MEAN CORPUSCULAR HGB CONC 32.9 g/dl (32.0-36.5); MEAN CORPUSCULAR VOLUME 96.3 fl (80.0-96.0); PLATELET COUNT, AUTOMATED 281 10^3/uL (150-450); RED BLOOD COUNT 4.38 10^6/uL (4.00-5.40); WHITE BLOOD COUNT 20.3 10^3/uL (4.0-10.0)
[2021-06-13 18:02] LABS: CALCIUM LEVEL 9.8 MG/DL (8.8-10.2); CREATININE FOR GFR 1.04 MG/DL (0.55-1.30); GLOMERULAR FILTRATION RATE 54.1 (>32); POTASSIUM SERUM 4.6 MEQ/L (3.5-5.1)
== END ==
PROVIDERS: ATTEND Internal Medicine
DX: R11.10 Vomiting, unspecified (principal)

== ENCOUNTER → 2021-06-13 | Outpatient (REF) | payer MEDICARE, BC, OTHER ==
[2021-06-13 17:52] LABS: INFLUENZA A AMPLIFICATION NEGATIVE (NEGATIVE); INFLUENZA B AMPLIFICATION NEGATIVE (NEGATIVE)
== END ==
PROVIDERS: ATTEND Internal Medicine
DX: R11.2 Nausea with vomiting, unspecified (principal)

== ENCOUNTER → 2021-06-14 | Outpatient (REF) ==
[2021-06-14 18:10] LABS: APPEARANCE, URINE HAZY (CLEAR); BACTERIA, URINE AUTO 2+ (NEGATIVE); BILIRUBIN, URINE AUTO NEGATIVE (NEGATIVE); BLOOD, URINE BLOOD 1+ (NEGATIVE); COLOR, URINE YELLOW (YELLOW); GLUCOSE, URINE (UA) AUTO NEGATIVE (NEGATIVE); KETONE, URINE AUTO NEGATIVE (NEGATIVE); LEUKOCYTE ESTERASE, URINE AUTO TRACE (NEGATIVE); MUCUS, URINE SMALL (NEGATIVE); NITRITE, URINE AUTO POSITIVE (NEGATIVE); PROTEIN, URINE AUTO 1+ mg/dL (NEGATIVE); RBC, URINE AUTO 1 /HPF (0-3); SPECIFIC GRAVITY URINE AUTO 1.023 (1.002-1.035); SQUAMOUS EPITHELIAL CELL UR AU 2 /HPF (0-6); UROBILINOGEN, URINE AUTO 0.2 mg/dL (0.0-2.0); WBC, URINE AUTO 2 /HPF (0-3)
== END ==
PROVIDERS: ATTEND Internal Medicine
DX: D72.829 Elevated white blood cell count, unspecified (principal)

== ENCOUNTER → 2021-06-15 | Outpatient (REF) | payer MEDICARE, BC, OTHER ==
[2021-06-15 14:19] LABS: BASO % 0.2 % (0.0-1.0); EOS # 0.2 10^3/uL (0.0-0.5); HEMATOCRIT 41.5 % (36.0-47.0); HEMOGLOBIN 13.5 g/dl (12.0-15.5); LYMPH # 1.6 10^3/uL (1.5-5.0); LYMPH % 8.9 % (24.0-44.0); MEAN CORPUSCULAR HGB CONC 32.5 g/dl (32.0-36.5); MEAN CORPUSCULAR VOLUME 98.3 fl (80.0-96.0); MONO # 1.2 10^3/uL (0.0-0.8); MONO % 6.6 % (2.0-8.0); NEUTROPHILS # 14.4 10^3/uL (1.5-8.5); NEUTROPHILS % 82.7 % (36.0-66.0); PLATELET COUNT, AUTOMATED 304 10^3/uL (150-450); RED BLOOD COUNT 4.22 10^6/uL (4.00-5.40); WHITE BLOOD COUNT 17.5 10^3/uL (4.0-10.0)
== END ==
PROVIDERS: ATTEND Internal Medicine
DX: R11.10 Vomiting, unspecified (principal)

== ENCOUNTER → 2021-06-16 | Outpatient (REF) | payer MEDICARE, BC, OTHER ==
[2021-06-16 11:55] LABS: BASO # 0.1 10^3/uL (0.0-0.2); BASO % 0.5 % (0.0-1.0); EOS # 0.2 10^3/uL (0.0-0.5); HEMATOCRIT 37.6 % (36.0-47.0); LYMPH % 20.6 % (24.0-44.0); MEAN CORPUSCULAR HEMOGLOBIN 31.6 pg (27.0-33.0); MEAN CORPUSCULAR HGB CONC 31.9 g/dl (32.0-36.5); MEAN CORPUSCULAR VOLUME 98.9 fl (80.0-96.0); MONO # 0.9 10^3/uL (0.0-0.8); MONO % 9.5 % (2.0-8.0); NEUTROPHILS # 6.6 10^3/uL (1.5-8.5); NEUTROPHILS % 66.6 % (36.0-66.0); PLATELET COUNT, AUTOMATED 262 10^3/uL (150-450); WHITE BLOOD COUNT 9.9 10^3/uL (4.0-10.0)
[2021-06-16 12:20] LABS: CALCIUM LEVEL 9.9 MG/DL (8.8-10.2); CREATININE FOR GFR 1.2 MG/DL (0.55-1.30); GLOMERULAR FILTRATION RATE 45.9 (>32)
== END ==
PROVIDERS: ATTEND Internal Medicine
DX: R11.10 Vomiting, unspecified (principal)

== ENCOUNTER → 2021-06-17 | Outpatient (CLI) | payer MEDICARE, BC, OTHER | PROVIDERS: ATTEND Internal Medicine | DX: K59.00 Constipation, unspecified (principal) ==

== ENCOUNTER → 2021-07-21 | Outpatient (REF) | payer MEDICARE, BC, OTHER ==
[2021-07-21 13:04] LABS: HEMATOCRIT 39.1 % (36.0-47.0); HEMOGLOBIN 12.8 g/dl (12.0-15.5); MEAN CORPUSCULAR HGB CONC 32.7 g/dl (32.0-36.5); MEAN CORPUSCULAR VOLUME 97.8 fl (80.0-96.0); PLATELET COUNT, AUTOMATED 279 10^3/uL (150-450); WHITE BLOOD COUNT 13.6 10^3/uL (4.0-10.0)
[2021-07-21 13:47] LABS: CALCIUM LEVEL 9.9 MG/DL (8.8-10.2); CREATININE FOR GFR 0.97 MG/DL (0.55-1.30); GLOMERULAR FILTRATION RATE 58.7 (>32); POTASSIUM SERUM 4.4 MEQ/L (3.5-5.1); THYROID STIMULATING HORMONE 1.54 uIU/ML (0.358-3.740)
== END ==
PROVIDERS: ATTEND Internal Medicine
DX: N18.9 Chronic kidney disease, unspecified (principal); Z79.899 Other long term (current) drug therapy

== ENCOUNTER → 2021-07-22 | Outpatient (REF) | payer MEDICARE, BC, OTHER ==
[2021-07-22 14:14] LABS: HEMATOCRIT 38.7 % (36.0-47.0); HEMOGLOBIN 12.6 g/dl (12.0-15.5); MEAN CORPUSCULAR HEMOGLOBIN 31.7 pg (27.0-33.0); MEAN CORPUSCULAR HGB CONC 32.6 g/dl (32.0-36.5); MEAN CORPUSCULAR VOLUME 97.2 fl (80.0-96.0); PLATELET COUNT, AUTOMATED 275 10^3/uL (150-450); RED BLOOD COUNT 3.98 10^6/uL (4.00-5.40)
== END ==
PROVIDERS: ATTEND Internal Medicine
DX: D72.829 Elevated white blood cell count, unspecified (principal)

== ENCOUNTER → 2021-09-24 | Outpatient (CLI) | payer MEDICARE, BC, OTHER | PROVIDERS: ATTEND Internal Medicine | DX: R05.9 Cough, unspecified (principal) ==

== ENCOUNTER → 2021-09-24 | Outpatient (REF) | payer MEDICARE, BC, OTHER ==
[2021-09-24 12:18] LABS: HEMATOCRIT 37.3 % (36.0-47.0); HEMOGLOBIN 12.5 g/dl (12.0-15.5); MEAN CORPUSCULAR HEMOGLOBIN 32.1 pg (27.0-33.0); MEAN CORPUSCULAR HGB CONC 33.5 g/dl (32.0-36.5); MEAN CORPUSCULAR VOLUME 95.9 fl (80.0-96.0); PLATELET COUNT, AUTOMATED 253 10^3/uL (150-450); RED BLOOD COUNT 3.89 10^6/uL (4.00-5.40); WHITE BLOOD COUNT 12.3 10^3/uL (4.0-10.0)
[2021-09-24 12:45] LABS: CALCIUM LEVEL 9.6 MG/DL (8.8-10.2); CREATININE FOR GFR 1.04 MG/DL (0.55-1.30); GLOMERULAR FILTRATION RATE 54.1 (>32); POTASSIUM SERUM 3.9 MEQ/L (3.5-5.1)
== END ==
PROVIDERS: ATTEND Internal Medicine
DX: R68.89 Other general symptoms and signs (principal); Z79.899 Other long term (current) drug therapy

== ENCOUNTER → 2021-10-22 | Outpatient (REF) | payer MEDICARE, BC, OTHER ==
[2021-10-22 11:30] LABS: HEMATOCRIT 36.6 % (36.0-47.0); HEMOGLOBIN 12.1 g/dl (12.0-15.5); MEAN CORPUSCULAR HEMOGLOBIN 32.3 pg (27.0-33.0); MEAN CORPUSCULAR HGB CONC 33.1 g/dl (32.0-36.5); MEAN CORPUSCULAR VOLUME 97.6 fl (80.0-96.0); PLATELET COUNT, AUTOMATED 227 10^3/uL (150-450); RED BLOOD COUNT 3.75 10^6/uL (4.00-5.40); WHITE BLOOD COUNT 10.4 10^3/uL (4.0-10.0)
[2021-10-22 12:00] LABS: CALCIUM LEVEL 9.3 MG/DL (8.8-10.2); CREATININE FOR GFR 0.96 MG/DL (0.55-1.30); GLOMERULAR FILTRATION RATE 59.4 (>32); POTASSIUM SERUM 3.9 MEQ/L (3.5-5.1)
== END ==
PROVIDERS: ATTEND Internal Medicine
DX: I10 Essential (primary) hypertension (principal)

== ENCOUNTER → 2022-01-21 | Outpatient (REF) | payer MEDICARE, BC, OTHER ==
[2022-01-21 12:27] LABS: HEMOGLOBIN 11.7 g/dl (12.0-15.5); MEAN CORPUSCULAR HGB CONC 33.4 g/dl (32.0-36.5); MEAN CORPUSCULAR VOLUME 98.6 fl (80.0-96.0); PLATELET COUNT, AUTOMATED 232 10^3/uL (150-450); RED BLOOD COUNT 3.55 10^6/uL (4.00-5.40); WHITE BLOOD COUNT 7.9 10^3/uL (4.0-10.0)
[2022-01-21 13:38] LABS: CALCIUM LEVEL 9.7 MG/DL (8.8-10.2); CREATININE FOR GFR 1.04 MG/DL (0.55-1.30); GLOMERULAR FILTRATION RATE 54.1 (>32); POTASSIUM SERUM 3.6 MEQ/L (3.5-5.1); THYROID STIMULATING HORMONE 1.54 uIU/ML (0.358-3.740)
== END ==
PROVIDERS: ATTEND Internal Medicine
DX: I10 Essential (primary) hypertension (principal)

== ENCOUNTER → 2022-02-18 | Outpatient (REF) | payer MEDICARE, BC, OTHER ==
[2022-02-18 18:05] LABS: HEMATOCRIT 40.9 % (36.0-47.0); HEMOGLOBIN 13.7 g/dl (12.0-15.5); MEAN CORPUSCULAR HEMOGLOBIN 32.4 pg (27.0-33.0); MEAN CORPUSCULAR HGB CONC 33.5 g/dl (32.0-36.5); MEAN CORPUSCULAR VOLUME 96.7 fl (80.0-96.0); PLATELET COUNT, AUTOMATED 287 10^3/uL (150-450); RED BLOOD COUNT 4.23 10^6/uL (4.00-5.40); WHITE BLOOD COUNT 10.7 10^3/uL (4.0-10.0)
[2022-02-18 18:38] LABS: CREATININE FOR GFR 1.06 MG/DL (0.55-1.30); POTASSIUM SERUM 4.5 MEQ/L (3.5-5.1)
== END ==
PROVIDERS: ATTEND Physician Assistant
DX: U07.1 COVID-19 (principal); Z79.899 Other long term (current) drug therapy

== ENCOUNTER → 2022-02-23 | Outpatient (REF) | payer MEDICARE, BC, OTHER ==
[2022-02-23 15:59] LABS: HEMATOCRIT 40.5 % (36.0-47.0); HEMOGLOBIN 13.5 g/dl (12.0-15.5); MEAN CORPUSCULAR HEMOGLOBIN 32.5 pg (27.0-33.0); MEAN CORPUSCULAR HGB CONC 33.3 g/dl (32.0-36.5); MEAN CORPUSCULAR VOLUME 97.4 fl (80.0-96.0); PLATELET COUNT, AUTOMATED 373 10^3/uL (150-450); RED BLOOD COUNT 4.16 10^6/uL (4.00-5.40); WHITE BLOOD COUNT 19.1 10^3/uL (4.0-10.0)
[2022-02-23 16:34] LABS: CALCIUM LEVEL 9.7 MG/DL (8.8-10.2); CREATININE FOR GFR 1.19 MG/DL (0.55-1.30); GLOMERULAR FILTRATION RATE 46.3 (>32); POTASSIUM SERUM 3.7 MEQ/L (3.5-5.1)
== END ==
PROVIDERS: ATTEND Physician Assistant
DX: U07.1 COVID-19 (principal); Z79.899 Other long term (current) drug therapy

== ENCOUNTER → 2022-02-24 | Outpatient (REF) | payer BC, MEDICARE, OTHER ==
[2022-02-24 12:55] LABS: HEMATOCRIT 39.8 % (36.0-47.0); HEMOGLOBIN 13.2 g/dl (12.0-15.5); MEAN CORPUSCULAR HEMOGLOBIN 31.9 pg (27.0-33.0); MEAN CORPUSCULAR HGB CONC 33.2 g/dl (32.0-36.5); MEAN CORPUSCULAR VOLUME 96.1 fl (80.0-96.0); PLATELET COUNT, AUTOMATED 325 10^3/uL (150-450); RED BLOOD COUNT 4.14 10^6/uL (4.00-5.40); WHITE BLOOD COUNT 12.5 10^3/uL (4.0-10.0)
[2022-02-24 13:33] LABS: CALCIUM LEVEL 9.6 MG/DL (8.8-10.2); CREATININE FOR GFR 1.06 MG/DL (0.55-1.30); POTASSIUM SERUM 4.1 MEQ/L (3.5-5.1)
== END ==
PROVIDERS: ATTEND Physician Assistant
DX: U07.1 COVID-19 (principal)

== ENCOUNTER → 2022-03-16 | Outpatient (REF) | payer MEDICARE, BC, OTHER | PROVIDERS: ATTEND Internal Medicine | DX: R50.9 Fever, unspecified (principal) ==